=== PATIENT | female | born 1970 | race Caucasian/White ===

== ENCOUNTER 2020-05-27 11:13 | Emergency (ER) | payer BC, SELFPAY ==
[2020-05-27 11:30] VITALS: BP 177/81; PULSE 67; RESP 18; TEMP 36.7; O2SAT 100
--- NOTE | 2020-05-27 11:46 | ED.EAR ---
HPI - Ear Problem General Chief complaint: Ear Stated complaint: ear infection Time Seen by Provider: 05/27/20 11:47 Source: patient Mode of arrival: ambulatory Limitations: no limitations History of Present Illness HPI Narrative: Emy Chiang is a 49 yo female with PMH of psoriasis, PAD, Euybi-Jcujexquu-Umaid, who comes to [facility] with pain in her right ear x10 days. Her PCP called in ofloxacin eardrops but the pain has continued to get worse and now surrounds her other ear. She states currently her pain is 6 out of 10 even when she tries to use heat Related Data Home Medications Medication Instructions Recorded Confirmed metoprolol tartrate 50 mg PO BID 05/27/20 05/27/20 ofloxacin See Rx Instructions .ROUTE .COMPLEX 05/27/20 05/27/20 sertraline 100 mg PO DAILY 05/27/20 05/27/20 Allergies Allergy/AdvReac Type Severity Reaction Status Date / Time No Known Allergies Allergy Verified 05/27/20 11:40 Review of Systems Review of Systems: Narrative: CONSTITUTIONAL: Denies fever, chills, sweats. EYES: Denies visual changes, redness, discharge. ENT: Denies rhinorrhea, congestion, sore throat, has R otalgia. CARDIOVASCULAR: Denies chest pain, palpitations, edema. RESPIRATORY: Denies dyspnea, wheezing, cough GASTROINTESTINAL: Denies abdominal pain, nausea, vomiting, diarrhea. GENITOURINARY: Denies dysuria, hematuria, abnormal discharge SKIN: Denies rash or itching. NEUROLOGIC: Denies numbness, or focal weakness. PSYCHIATRIC: Denies anxiety or depression. PMFSH Past Medical History Medical History PAD (peripheral artery disease) Psoriasis Wtdlp-Xirftvvgj-Kblti (WPW) pattern Family History Family History Other PAD (peripheral artery disease) Social History Social History (Updated 05/27/20 @ 11:50 by Lorene Deras CNP) Smoking status: Never smoker Alcohol intake: current Comments At time of signature, I agree with nursing past medical, surgical, social and family history. There is no relevant family history pertinent to the presenting complaint. Exam Narrative: Exam Narrative: GENERAL: This is a well-nourished, well-developed patient, in mild distress. HEAD: normocephalic, atraumatic. EYES: PERRL. Sclera clear/white. Vision is grossly intact. EARS: External ears normal, auditory canals clear on L and right erythema and white discharge with fluid behind TM, TMs normal without perforation. Hearing grossly intact. NOSE: External nose normal without nasal discharge, nares without redness, no rhinorrhea. THROAT: Mucous membranes moist, NECK: Neck supple, non-tender CARDIOVASCULAR: Regular rate and rhythm without murmurs, gallops, or rubs. RESPIRATORY: Clear to auscultation. Breath sounds equal bilaterally. No wheezes, rales, or rhonchi. GASTROINTESTINAL: Abdomen soft, SKIN: warm, intact with no suspicious lesions or rash, good texture and turgor. NEURO: awake, alert, and oriented to person, place and time. There were no obvious focal neurologic abnormalities. Steady gait EXTREMITIES: Normal range of motion. BACK: Nontender without deformity Course Course Emergency Course: Patient came as a treatment failure for ear pain from primary care physician ear pain x10 days with worsening, currently 6 out of 10 Started on Cipro with dexamethasone eardrops Bactrim 800/160 type twice daily Use warm heat tear Follow-up with PCP Vital Signs Vital signs: Vital Signs Temperature 98.1 F 05/27/20 11:30 Pulse Rate 05/27/20 11:30 Respiratory Rate 18 05/27/20 11:30 Blood Pressure 177/81 H 05/27/20 11:30 Pulse Oximetry 100 05/27/20 11:30 Temperature 98.1 F 05/27/20 11:30 Pulse Rate 05/27/20 11:30 Respiratory Rate 18 05/27/20 11:30 Blood Pressure 177/81 H 05/27/20 11:30 Pulse Oximetry 100 05/27/20 11:30 Medical Decision Making Differential Diagnosis
== END 2020-05-27 12:00 | disposition home or self-care (01) ==
PROVIDERS: Emergency Provider Nurse Practitioner; PCP Internal Medicine
DX: H60.21 Malignant otitis externa, right ear (principal); I73.9 Peripheral vascular disease, unspecified; I45.6 Pre-excitation syndrome
CPT/HCPCS: 99213; G0463

== ENCOUNTER 2020-06-03 10:50 | Emergency (ER) | payer BC, SELFPAY ==
[2020-06-03 11:00] VITALS: BP 180/80; PULSE 68; RESP 20; TEMP 36.3; O2SAT 97
[2020-06-03 11:07] VITALS: BP 180/80; PULSE 68; RESP 20; TEMP 36.3; O2SAT 97
--- NOTE | 2020-06-03 11:29 | ED.EAR ---
HPI - Ear Problem General Chief complaint: Ear Stated complaint: rt ear pain Source: patient Mode of arrival: ambulatory Limitations: no limitations History of Present Illness HPI Narrative: Patient presents for evaluation of right-sided ear pain for the last few weeks. She was evaluated here on 05/27/2020 for similar symptoms. Prior to that time she had received a prescription for ofloxacin otic preparation from her primary care provider. She was given a prescription for cefdinir on 05/27/2020 which she took as directed. She reports improvement in the pain since that time. She does have some hearing loss in the right side. She has noted some thick purulent/sanguinous drainage noted from the right ear. She denies any fever, chills, nausea, vomiting, nasal congestion or respiratory symptoms. She does smoke marijuana but does not smoke ciagrettes. Related Data Home Medications Medication Instructions Recorded Confirmed metoprolol tartrate 50 mg PO BID 05/27/20 05/27/20 ofloxacin See Rx Instructions .ROUTE .COMPLEX 05/27/20 05/27/20 sertraline 100 mg PO DAILY 05/27/20 05/27/20 Allergies Allergy/AdvReac Type Severity Reaction Status Date / Time No Known Allergies Allergy Verified 06/03/20 11:02 Review of Systems Review of Systems: Narrative: CONSTITUTIONAL: Denies fever, chills, or sweats. EYES: Denies visual changes, redness, or discharge. ENT: Reports right-sided ear pain with associated drainage and hearing loss. Denies tinnitus and sore throat. CARDIOVASCULAR: Denies chest pain, palpitations, or edema. RESPIRATORY: Denies cough or dyspnea. GASTROINTESTINAL: Denies abdominal pain, nausea, vomiting, or diarrhea. GENITOURINARY: Denies dysuria or hematuria. SKIN: Denies rash or itching. MUSCULOSKELETAL: Denies back pain, joint pain, or myalgia. NEUROLOGIC: Denies headache, numbness, dizziness, or weakness. PSYCHIATRIC: Denies anxiety or depression. [facility] Past Medical History Medical History (Updated 06/03/20 @ 12:44 by Xavier Siddiqui, EMILE, ) PAD (peripheral artery disease) Psoriasis Vklbm-Ihhaftxzo-Eexlu (WPW) pattern Surgical History Surgical History Previous section Family History Family History Mother Diabetes mellitus Father Diabetes mellitus Other PAD (peripheral artery disease) Social History Social History Smoking status: Never smoker Alcohol intake: current Alcohol use details: Social Substance use: current Substance use type: marijuana Living arrangements: with family Gender identity (if verbalized by the patient): Female Sexual Orientation (if Verbalized by the Patient): Straight or Heterosexual Spiritual care concerns: No Exam Narrative: Exam Narrative: GENERAL: Well-appearing, well-nourished, and in no acute distress. HEAD: Normocephalic, atraumatic. EYES: PERRLA and EOMI. ENT: Nares clear, no rhinorrhea or epistaxis. Mucous membranes moist. Oropharynx without tonsillar hypertrophy exudate or other lesions. Left ear canal is ceruminous, obstructing visualization of the TM. There is white/yellow exudate noted in the right ear canal. Pt has pain with movement with movement of right pinna NECK: Supple. No adenopathy or masses. No carotid bruits or JVD CHEST: Clear to auscultation. No respiratory distress. No wheezes rales or rhonchi HEART: Regular rate and rhythm. No murmur heard. Normal peripheral pulses. ABDOMEN: Soft, nontender, nondistended, normal active bowel sounds. EXTREMITIES: Normal range of motion. No edema. SKIN: Warm, dry, no rash. NEURO: No focal deficits. Alert and oriented x3. PSYCH: Normal mood and affect. Course Course Emergency Course: This is a 49-year-old female who presented with complaints of right-sided ear pain and hearing loss. On exam sh
[2020-06-03] MEDS: ONDANSETRON HCL ODT 4 MG TABLET PO (11:31)
--- NOTE | 2020-06-03 11:43 | PC.NURSE ---
1133-Pt became nauseated during ear irrigation. Zofran ordered by provider. Pt resting comfortably on exam table.
== END 2020-06-03 12:52 | disposition home or self-care (01) ==
PROVIDERS: Emergency Provider Nurse Practitioner; PCP Internal Medicine
DX: H66.91 Otitis media, unspecified, right ear (principal); H60.91 Unspecified otitis externa, right ear; H61.21 Impacted cerumen, right ear; I73.9 Peripheral vascular disease, unspecified; I45.6 Pre-excitation syndrome
CPT/HCPCS: 69209; 99213; A9270; G0463

== ENCOUNTER 2020-08-18 13:08 | Emergency (ER) | payer BC, SELFPAY ==
[2020-08-18] VITALS (7 sets, daily range): BP systolic 127–207; BP diastolic 62–109; PULSE 64–85; RESP 12–18; TEMP 36.2; O2SAT 95–100
--- NOTE | ~2020-08-18 | XR_ITS ---
EXAMINATION: XR chest 2V DATE: 08/18/2020 14:30 INDICATION: Cough. TECHNIQUE: Frontal and lateral views of the chest were obtained. COMPARISON: None. FINDINGS: The chest demonstrates clear lungs without pneumonia, pleural effusion, or pneumothorax. Th e heart size is normal. IMPRESSION: 1. No acute cardiopulmonary disease. Reviewed, dictated and finalized at location A.
--- NOTE | ~2020-08-18 | CT_ITS ---
EXAMINATION: CT brain wo con DATE: 08/18/2020 14:18 INDICATION: Dizziness. TECHNIQUE: Computed tomography (CT) of the head was performed without intravenous contrast. The mA wa s adjusted according to patient size. Iterative reconstruction technique was employed. The dose-lengt h product was 605.33 mGy-cm. COMPARISON: None FINDINGS: There is no intracranial hemorrhage, acute infarction, or abnormal intracranial mass lesion . The ventricles are normal in size. The paranasal sinuses are clear. The mastoid air cells are donte l. IMPRESSION: 1. Normal brain. Reviewed, dictated and finalized at location A. IMPRESSION: 1. Normal brain.
--- NOTE | 2020-08-18 13:55 | ECG_ITS ---
Measurements Intervals [place] Rate: 69 P: 50 AR: 152 QRS: 55 QRSD: 88 T: 47 QT: 375 QTc: 403 Interpretive Statements SINUS RHYTHM BASELINE ARTIFACT- I, III, AVR, AVL, AVF, V4-V6 NORMAL ECG Electronically Signed On 08-18-2020 14:18:03 CDT by Kadeem Mednes D.O.
--- NOTE | 2020-08-18 14:06 | ED.GENADULT ---
HPI - General Adult General Chief complaint: Dizziness Stated complaint: dizziness Time Seen by Provider: 08/18/20 13:13 Source: patient Mode of arrival: ambulatory Limitations: no limitations History of Present Illness HPI narrative: Patient presents for evaluation of dizziness that started today while she was eating lunch. Started abruptly. She then developed nausea is experienced vomiting and diarrhea. She denies any abdominal pain, chest pain, shortness of breath, fever, chills, urinary symptoms. No history of similar symptoms in the past. She does consume ETOH about once per week, with last intake last night. She states she did feel intoxicated at that time. She also does smoke marijuana. She denies tobacco use. She has not experienced any difficulty speaking/swallowing. At the time of symptom onset, she had some heaviness in her legs but she denies any deficits in strength or range of motion. She states she feel particularly dizzy when she moves from sitting to standing position. 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 Related Data Home Medications Medication Instructions Recorded Confirmed metoprolol tartrate 50 mg PO BID 05/27/20 05/27/20 sertraline 100 mg PO DAILY 05/27/20 05/27/20 cholecalciferol (vitamin D3) 08/18/20 [Vitamin D3] rosuvastatin mg 08/18/20 Allergies Allergy/AdvReac Type Severity Reaction Status Date / Time No Known Allergies Allergy Verified 08/18/20 13:32 Review of Systems Review of Systems: Narrative: CONSTITUTIONAL: Denies fever, chills, or sweats. EYES: Denies visual changes, redness, or discharge. ENT: Denies rhinorrhea, congestion, sore throat, or otalgia. CARDIOVASCULAR: Denies chest pain, palpitations, or edema. RESPIRATORY: Denies cough or dyspnea. GASTROINTESTINAL: Reports nausea, vomiting, diarrhea. Denies abdominal pain. GENITOURINARY: Denies dysuria or hematuria. SKIN: Denies rash or itching. MUSCULOSKELETAL: Denies back pain, joint pain, or myalgia. NEUROLOGIC: Reports dizziness. Denies headache, numbness and tingling PSYCHIATRIC: Denies anxiety or depression. [facility] Past Medical History Medical History PAD (peripheral artery disease) Psoriasis Zewlg-Edhzjmwoz-Naxyv (WPW) pattern Surgical History Surgical History Previous section Family History Family History Mother Diabetes mellitus Father Diabetes mellitus Other PAD (peripheral artery disease) Social History Social History Smoking status: Never smoker Alcohol intake: current Substance use: current Substance use type: marijuana Gender identity (if verbalized by the patient): Female Spiritual care concerns: No Exam Narrative: Exam Narrative: GENERAL: Well-appearing, well-nourished, and in no acute distress. HEAD: Normocephalic, atraumatic. EYES: PERRLA and EOMI. ENT: Nares clear, no rhinorrhea or epistaxis. Mucous membranes moist. Oropharynx without tonsillar hypertrophy exudate or other lesions. Bilateral TMs pearly nino nonbulging NECK: Supple. No adenopathy or masses. No carotid bruits or JVD CHEST: Clear to auscultation. No respiratory distress. No wheezes rales or rhonchi HEART: Regular rate and rhythm. No murmur heard. Normal peripheral pulses. ABDOMEN: Soft, nontender, nondistended, normal active bowel sounds. EXTREMITIES: Normal range of motion. No edema. SKIN: Warm, dry, no rash. NEURO: No focal deficits. Alert and oriented x3. Normal ajynfj-bl-mpgj exam, able to perform rapid alternating movements without difficulty. Comprehensive neurological exam intact PSYCH: Normal mood and affect. NIH score is 0 Course Course Emergency Course: Patient is a 50-year-old fem
[2020-08-18 14:10] LABS: Basophils Absolute Auto 0.1 K/mm3 (0.0-0.1); Basophils Percent Auto 0.7 % (0.2-1.2); Eosinophils Absolute Auto 0.1 K/mm3 (0-0.3); Eosinophils Percent Auto 0.7 % (0-4.4); Hematocrit 42.9 % (37.0-47.0); Hemoglobin 14.7 g/dL (12.0-15.0); Immature Granulocyte Absolute 0.04 K/mm3 (0.00-0.031); Immature Granulocyte Percent A 0.4 % (0-0.5); Lymphocytes Absolute Auto 2.22 K/mm3 (0.9-3.2); Lymphocytes Percent Auto 21.7 % (18.3-44.2); Mean Corpuscular HGB Conc 34.3 g/dl (32-36); Mean Corpuscular Hemoglobin 31.2 pg (26-34); Mean Corpuscular Volume 91.1 fl (80-100); Mean Platelet Volume 8.6 fl (7.4-10.4); Monocytes Absolute Auto 0.5 K/mm3 (0.1-0.6); Monocytes Percent Auto 5.2 % (2.6-8.5); Neutrophils Absolute Auto 7.3 K/mm3 (1.3-6.7); Neutrophils Percent Auto 71.3 % (45.5-73.1); Platelet Count Result 382 k/mm3 (150-375); Red Blood Count 4.71 M/mm3 (4.2-5.4); Red Cell Distribution Width 12.9 % (11.5-14.5); White Blood Count 10.2 K/mm3 (4.5-10.0)
[2020-08-18 14:17] LABS: Add Urine Microscopic? YES; Appearance Urine Clear (Clear); Bacteria Urine Trace /hpf; Bilirubin Urine Negative (Negative); Blood Urine 1+ (Negative); Color Urine Yellow (Yellow); Glucose Urine UA Negative (Negative); Ketones Urine Negative (Negative); Leukocyte Esterase Ur Negative LEU/UL (Negative); Mucus Urine Rare /lpf; Nitrate Urine Negative (Negative); Protein Urine 1+ mg/dL (Negative); RBC Urine 0-2 /hpf (0-2); Squamous Epithelial Cell Urine Occasional /hpf (Few); WBC Urine 0-3 /hpf
[2020-08-18 14:20] LABS: Anion Gap 8 mmol/L (8-16); Blood Urea Nitrogen 16 mg/dL (7-17); Calcium 9.3 mg/dL (8.4-10.2); Carbon Dioxide 32 mmol/L (22-30); Chloride 103 mmol/L (98-107); Estimated CRCL calculation 70 ml/min; Estimated Glomerular Filt Rate > 60; Glucose 102 mg/dL (65-105); Lipase 322 U/L (23-300); Potassium 4.1 mmol/L (3.4-5.0); Sodium 143 mmol/L (137-145)
[2020-08-18] MEDS: SODIUM CHLORIDE 0.9% IV 1,000 ML 999 ML IV CONT (14:30)
[2020-08-18 14:32] LABS: Troponin I < 0.012 ng/mL (0.000-0.034)
[2020-08-18] MEDS: ONDANSETRON INJ 4 MG/2 ML VIAL IV PUSH (14:33)
[2020-08-18 14:48] LABS: Alanine Aminotransferase 19 U/L (4-35); Albumin Level 4.9 g/dL (3.5-5.1); Alkaline Phosphatase 93 U/L (38-126); Aspartate Amino Transferase 33 U/L (14-36); Bilirubin,Total 0.5 mg/dL (0.2-1.3); Prothrombin Time 13.6 Seconds (11.1-14.7)
[2020-08-18 14:49] LABS: Partial Thromboplastin Time 27.2 SECONDS (22.3-36.8)
[2020-08-18] MEDS: MECLIZINE HCL 25 MG TABLET PO (15:05)
[2020-08-18] MEDS: diazePAM (*CRX) 5 MG TABLET PO (15:20)
== END 2020-08-18 16:37 | disposition home or self-care (01) ==
PROVIDERS: Emergency Provider Nurse Practitioner; PCP Internal Medicine
DX: R42 Dizziness and giddiness (principal); I10 Essential (primary) hypertension; I73.9 Peripheral vascular disease, unspecified; I45.6 Pre-excitation syndrome
CPT/HCPCS: 36415; 70450; 71046; 80048; 80076; 81001; 83690; 84443; 84484; 85025; 85610; 85730; 93005; 96361; 96374; 99284; A9270; J2405; J7030

== ENCOUNTER 2021-07-01 12:08 | Outpatient (CLI) | payer BC, SELFPAY ==
[2021-07-01 19:38] LABS: Hemoglobin 13.1 g/dL (12.0-15.0); Mean Corpuscular HGB Conc 33.6 g/dl (32-36); Mean Corpuscular Volume 92.2 fl (80-100); Mean Platelet Volume 10.8 fl (7.4-10.4); Platelet Count Result 230 k/mm3 (150-375); Red Blood Count 4.23 M/mm3 (4.2-5.4); Red Cell Distribution Width 13.9 % (11.5-14.5); White Blood Count 8.8 K/mm3 (4.5-10.0)
[2021-07-01 19:47] LABS: Alanine Aminotransferase 15 U/L (4-35); Albumin Level 4.2 g/dL (3.5-5.1); Alkaline Phosphatase 86 U/L (38-126); Anion Gap 9 mmol/L (8-16); Aspartate Amino Transferase 26 U/L (14-36); Bilirubin,Total 0.6 mg/dL (0.2-1.3); Blood Urea Nitrogen 16 mg/dL (7-17); Carbon Dioxide 27 mmol/L (22-30); Chloride 107 mmol/L (98-107); Cholesterol 177 mg/dL (0-200); Estimated Glomerular Filt Rate > 60; Glucose 92 mg/dL (65-110); HDL Direct 64 mg/dL; Potassium 4.2 mmol/L (3.4-5.0); Sodium 143 mmol/L (137-145); Triglycerides 80 mg/dL (<150)
[2021-07-01 19:58] LABS: LDL Cholesterol Direct 90 mg/dL
[2021-07-01 20:00] LABS: Vitamin D 25 Hydroxy 56.1 ng/mL
== END 2021-07-01 12:09 | disposition home or self-care (01) ==
LOC: ANHBWCLAB 12:10
PROVIDERS: PCP Family Medicine; Visit Provider Family Medicine
DX: E55.9 Vitamin D deficiency, unspecified (principal); I73.9 Peripheral vascular disease, unspecified; Z00.00 Encounter for general adult medical examination without abnormal findings
CPT/HCPCS: 36415; 80053; 80061; 82306; 85027

== ENCOUNTER 2022-07-02 14:08 | Outpatient (CLI) | payer OTHER, SELFPAY ==
--- NOTE | ~2022-07-02 | XR_ITS ---
XR sinus min 3V DATE: 07/02/2022 14:23 INDICATION: Left sided sinus pressure. Nasal congestion. TECHNIQUE: Warren Demarco, lateral and submental vertical views COMPARISON: None FINDINGS: There is asymmetric increased density of the left frontal and maxillary sinuses. The parana adrián sinuses and mastoid air cells otherwise appear unremarkable. Normal sella turcica. IMPRESSION: Cloudiness of left frontal and maxillary sinuses suggesting sinusitis of the structures Reviewed, dictated and finalized at location B. [employer] IMPRESSION: Cloudiness of left frontal and maxillary sinuses suggesting sinusit is of the structures
[2022-07-02 17:27] LABS: Alanine Aminotransferase 20 U/L (6-35); Albumin Level 4.7 g/dL (3.5-5.1); Alkaline Phosphatase 115 U/L (38-126); Anion Gap 7 mmol/L (8-16); Aspartate Amino Transferase 48 U/L (14-36); Bilirubin,Total 0.7 mg/dL (0.2-1.3); Blood Urea Nitrogen 10 mg/dL (7-17); Calcium 9.6 mg/dL (8.4-10.2); Carbon Dioxide 32 mmol/L (22-30); Chloride 101 mmol/L (98-107); Cholesterol 252 mg/dL (0-200); Estimated Glomerular Filt Rate > 60; Glucose 88 mg/dL (65-110); HDL Direct 80 mg/dL; Potassium 3.4 mmol/L (3.4-5.0); Sodium 140 mmol/L (137-145); Triglycerides 153 mg/dL (<150)
[2022-07-02 17:40] LABS: Basophils Absolute Auto 0.1 K/mm3 (0.0-0.1); Basophils Percent Auto 0.7 % (0.2-1.2); Eosinophils Absolute Auto 0.1 K/mm3 (0-0.3); Hematocrit 43.9 % (37.0-47.0); Hemoglobin 14.4 g/dL (12.0-15.0); Immature Granulocyte Absolute 0.06 K/mm3 (0.00-0.031); Immature Granulocyte Percent A 0.7 % (0-0.5); Mean Corpuscular HGB Conc 32.8 g/dl (32-36); Mean Corpuscular Volume 94.6 fl (80-100); Monocytes Absolute Auto 0.5 K/mm3 (0.1-0.6); Monocytes Percent Auto 5.4 % (2.6-8.5); Neutrophils Absolute Auto 6.4 K/mm3 (1.3-6.7); Neutrophils Percent Auto 70.2 % (45.5-73.1); Platelet Count Result 294 k/mm3 (150-375); Red Blood Count 4.64 M/mm3 (4.2-5.4); Red Cell Distribution Width 13.2 % (11.5-14.5); White Blood Count 9.1 K/mm3 (4.5-10.0)
[2022-07-02 17:41] LABS: LDL Cholesterol Direct 116 mg/dL
[2022-07-02 18:55] LABS: Vitamin D 25 Hydroxy 56.1 ng/mL
== END 2022-07-02 14:09 | disposition home or self-care (01) ==
LOC: ANHBWCLAB 14:09
PROVIDERS: PCP Family Medicine; Visit Provider Family Medicine
DX: Z00.00 Encounter for general adult medical examination without abnormal findings (principal); L40.9 Psoriasis, unspecified; I73.9 Peripheral vascular disease, unspecified; I45.6 Pre-excitation syndrome; Z12.39 Encounter for other screening for malignant neoplasm of breast; Z12.11 Encounter for screening for malignant neoplasm of colon; E55.9 Vitamin D deficiency, unspecified; R42 Dizziness and giddiness; R09.81 Nasal congestion
CPT/HCPCS: 36415; 70220; 80053; 80061; 82306; 85025

== ENCOUNTER 2022-10-15 10:53 | Outpatient (CLI) | payer OTHER, SELFPAY ==
[2022-10-15 19:50] LABS: Basophils Percent Auto 0.6 % (0.2-1.2); Eosinophils Absolute Auto 0.1 K/mm3 (0-0.3); Eosinophils Percent Auto 1.5 % (0-4.4); Hematocrit 43.2 % (37.0-47.0); Hemoglobin 14.4 g/dL (12.0-15.0); Immature Granulocyte Absolute 0.03 K/mm3 (0.00-0.031); Immature Granulocyte Percent A 0.4 % (0-0.5); Lymphocytes Absolute Auto 1.54 K/mm3 (0.9-3.2); Lymphocytes Percent Auto 21.6 % (18.3-44.2); Mean Corpuscular HGB Conc 33.3 g/dl (32-36); Mean Corpuscular Hemoglobin 32.3 pg (26-34); Mean Corpuscular Volume 96.9 fl (80-100); Mean Platelet Volume 9.3 fl (7.4-10.4); Monocytes Absolute Auto 0.4 K/mm3 (0.1-0.6); Monocytes Percent Auto 5.5 % (2.6-8.5); Neutrophils Percent Auto 70.4 % (45.5-73.1); Platelet Count Result 247 k/mm3 (150-375); Red Blood Count 4.46 M/mm3 (4.2-5.4); Red Cell Distribution Width 13.6 % (11.5-14.5); White Blood Count 7.1 K/mm3 (4.5-10.0)
[2022-10-15 20:23] LABS: Alanine Aminotransferase 39 U/L (6-35); Albumin Level 4.7 g/dL (3.5-5.1); Alkaline Phosphatase 93 U/L (38-126); Anion Gap 10 mmol/L (8-16); Aspartate Amino Transferase 67 U/L (14-36); Bilirubin,Total 0.8 mg/dL (0.2-1.3); Blood Urea Nitrogen 11 mg/dL (7-17); Calcium 9.6 mg/dL (8.4-10.2); Carbon Dioxide 31 mmol/L (22-30); Chloride 99 mmol/L (98-107); Cholesterol 234 mg/dL (0-200); Estimated Glomerular Filt Rate > 60; Glucose 78 mg/dL (65-110); HDL Direct 107 mg/dL; Potassium 3.4 mmol/L (3.4-5.0); Sodium 140 mmol/L (137-145); Triglycerides 154 mg/dL (<150)
[2022-10-15 20:33] LABS: LDL Cholesterol Direct 99 mg/dL
== END 2022-10-15 10:54 | disposition home or self-care (01) ==
LOC: ANHBWCLAB 10:54
PROVIDERS: PCP Family Medicine; Visit Provider Nurse Practitioner Adult Health
DX: I10 Essential (primary) hypertension (principal); E55.9 Vitamin D deficiency, unspecified
CPT/HCPCS: 36415; 80053; 80061; 82306; 85025

== ENCOUNTER 2022-10-21 10:13 | Outpatient (CLI) | payer OTHER, SELFPAY ==
--- NOTE | ~2022-10-21 | XR_ITS ---
EXAMINATION: XR ribs BI 3V w CXR 2V INDICATION: Chest pain after fall TECHNIQUE: Frontal and lateral views of the chest and 3 views of the bilateral ribs were obtained. COMPARISON: 08/18/2010 FINDINGS: The lungs are free of acute opacities. No pleural effusion or pneumothorax. The cardiomedia stinal silhouette is normal. There is mild thoracic spondylosis. No displaced rib fracture is identif ied. IMPRESSION: 1. No acute cardiopulmonary abnormality or evidence of displaced rib fracture. Reviewed, dictated and finalized at location L.
== END 2022-10-21 10:14 | disposition home or self-care (01) ==
LOC: ANHBWCIMG 10:15
PROVIDERS: PCP Family Medicine; Visit Provider Nurse Practitioner Adult Health
DX: R07.89 Other chest pain (principal)
CPT/HCPCS: 71046; 71110

== ENCOUNTER 2023-04-16 09:41 | Outpatient (CLI) | payer OTHER, SELFPAY ==
[2023-04-16 19:43] LABS: Hematocrit 43.2 % (37.0-47.0); Mean Corpuscular HGB Conc 32.4 g/dl (32-36); Mean Corpuscular Hemoglobin 32.6 pg (26-34); Mean Corpuscular Volume 100.5 fl (80-100); Mean Platelet Volume 9.4 fl (7.4-10.4); Platelet Count Result 355 k/mm3 (150-375); Red Cell Distribution Width 14.3 % (11.5-14.5); White Blood Count 9.8 K/mm3 (4.5-10.0)
[2023-04-16 19:57] LABS: Alanine Aminotransferase 21 U/L (6-35); Albumin Level 4.7 g/dL (3.5-5.1); Alkaline Phosphatase 92 U/L (38-126); Anion Gap 10 mmol/L (8-16); Aspartate Amino Transferase 48 U/L (14-36); Bilirubin,Total 0.8 mg/dL (0.2-1.3); Blood Urea Nitrogen 22 mg/dL (7-17); Calcium 10.1 mg/dL (8.4-10.2); Carbon Dioxide 23 mmol/L (22-30); Chloride 106 mmol/L (98-107); Cholesterol 213 mg/dL (0-200); Estimated Glomerular Filt Rate 58; Glucose 92 mg/dL (65-110); HDL Direct 55 mg/dL; Potassium 4.4 mmol/L (3.4-5.0); Sodium 139 mmol/L (137-145); Triglycerides 142 mg/dL (<150)
[2023-04-16 19:58] LABS: Vitamin D 25 Hydroxy 87.5 ng/mL
[2023-04-16 20:08] LABS: LDL Cholesterol Direct 108 mg/dL
[2023-04-16 20:20] LABS: Erythrocyte Sedimentation Rate 16 mm/hr (0-20)
[2023-04-21 11:48] LABS: ANA Cascade Screen Negative (Negative)
== END 2023-04-16 09:42 | disposition home or self-care (01) ==
LOC: ANHBWCLAB 09:43
PROVIDERS: PCP Nurse Practitioner Adult Health; Visit Provider Nurse Practitioner Adult Health
DX: E55.9 Vitamin D deficiency, unspecified (principal); L40.9 Psoriasis, unspecified; Z13.9 Encounter for screening, unspecified
CPT/HCPCS: 36415; 80053; 80061; 82306; 84443; 85027; 85652; 86038; 86225; 86235; 86364

== ENCOUNTER 2023-10-22 11:40 | Outpatient (CLI) | payer OTHER, SELFPAY ==
--- NOTE | ~2023-10-22 | XR_ITS ---
XR shoulder RT min 2V Ordering provider: Viviane Akhtar APRN History: . Pain in right shoulder after lifting . Comparison: None. FINDINGS: BONES: No acute fracture or dislocation. JOINT SPACES: The acromioclavicular joint is normal. The glenohumeral joint is normal. SOFT TISSUES: Normal. IMPRESSION: No acute osseous abnormality right shoulder. Reviewed, dictated and finalized at location A.
[2023-10-22 18:50] LABS: Basophils Absolute Auto 0.1 K/mm3 (0.0-0.1); Basophils Percent Auto 0.9 % (0.2-1.2); Eosinophils Absolute Auto 0.1 K/mm3 (0-0.3); Eosinophils Percent Auto 1.2 % (0-4.4); Hematocrit 46.4 % (37.0-47.0); Hemoglobin 15.2 g/dL (12.0-15.0); Immature Granulocyte Absolute 0.05 K/mm3 (0.00-0.031); Immature Granulocyte Percent A 0.6 % (0-0.5); Lymphocytes Absolute Auto 1.67 K/mm3 (0.9-3.2); Lymphocytes Percent Auto 20.3 % (18.3-44.2); Mean Corpuscular HGB Conc 32.8 g/dl (32-36); Mean Corpuscular Hemoglobin 31.1 pg (26-34); Mean Corpuscular Volume 94.9 fl (80-100); Mean Platelet Volume 9.8 fl (7.4-10.4); Monocytes Absolute Auto 0.4 K/mm3 (0.1-0.6); Monocytes Percent Auto 5.1 % (2.6-8.5); Neutrophils Absolute Auto 5.9 K/mm3 (1.3-6.7); Neutrophils Percent Auto 71.9 % (45.5-73.1); Platelet Count Result 352 k/mm3 (150-375); Red Blood Count 4.89 M/mm3 (4.2-5.4); Red Cell Distribution Width 14.1 % (11.5-14.5); White Blood Count 8.2 K/mm3 (4.5-10.0)
[2023-10-22 19:16] LABS: Alanine Aminotransferase 291 U/L (6-35); Albumin Level 5.4 g/dL (3.5-5.1); Alkaline Phosphatase 95 U/L (38-126); Anion Gap 12 mmol/L (4-12); Aspartate Amino Transferase 128 U/L (14-36); Bilirubin,Total 0.9 mg/dL (0.2-1.3); Blood Urea Nitrogen 15 mg/dL (7-17); Calcium 10.1 mg/dL (8.4-10.2); Carbon Dioxide 26 mmol/L (22-30); Chloride 103 mmol/L (98-107); Cholesterol 239 mg/dL (0-200); Estimated Glomerular Filt Rate > 60; Glucose 90 mg/dL (65-110); HDL Direct 73 mg/dL; Potassium 3.7 mmol/L (3.4-5.0); Sodium 141 mmol/L (137-145); Triglycerides 125 mg/dL (<150)
[2023-10-22 19:30] LABS: LDL Cholesterol Direct 127 mg/dL
[2023-10-22 19:49] LABS: Vitamin D 25 Hydroxy 84.4 ng/mL
[2023-10-22 21:51] LABS: Free T4 Free Thyroxine Reflex 1.49 ng/dL (0.78-2.19)
[2023-10-22 23:17] LABS: Total Triiodothyronine (T3) 1.34 NG/ML (0.97-1.69)
== END 2023-10-22 11:41 | disposition home or self-care (01) ==
LOC: ANHBWCLAB 11:42
PROVIDERS: PCP Nurse Practitioner Adult Health; Visit Provider Nurse Practitioner Adult Health
DX: M25.511 Pain in right shoulder (principal); E55.9 Vitamin D deficiency, unspecified; I10 Essential (primary) hypertension
CPT/HCPCS: 36415; 73030; 80053; 80061; 82306; 83735; 84439; 84443; 84480; 85025

== ENCOUNTER 2023-10-27 15:23 | Outpatient (CLI) | payer OTHER, SELFPAY ==
[2023-10-27 21:44] LABS: HAV RESULT Negative (Negative); Hepatitis B Surface Antigen Negative (Negative)
[2023-10-27 21:45] LABS: Hepatitis C Virus Antibody Negative (Negative)
[2023-10-28 03:09] LABS: Hepatitis B Core IgM Result Negative (Negative)
== END 2023-10-27 15:24 | disposition home or self-care (01) ==
LOC: ANHBWCLAB 15:25
PROVIDERS: PCP Nurse Practitioner Adult Health; Visit Provider Nurse Practitioner Adult Health
DX: R74.8 Abnormal levels of other serum enzymes (principal)
CPT/HCPCS: 36415; 80074

== ENCOUNTER 2023-11-14 09:15 | Outpatient (CLI) | payer OTHER, SELFPAY ==
--- NOTE | ~2023-11-14 | US_ITS ---
US abdomen limited INDICATION: Elevated liver function tests. PROCEDURE: Realtime right upper abdominal ultrasound. COMPARISON: No prior studies for comparison. FINDINGS: The pancreas is normal without focal mass or pancreatic ductal dilation. Liver echotexture is increased, consistent with fatty infiltration. There is normal directional flow in the portal ve in. The gallbladder is normal without stones, gallbladder wall thickening or pericholecystic fluid. Comm on bile duct measures 2.2 mm. No sonographic Rhodes's sign. IMPRESSION: 1: Fatty infiltration of the liver. Reviewed, dictated and finalized at location B.
== END 2023-11-14 09:16 | disposition home or self-care (01) ==
PROVIDERS: PCP Nurse Practitioner Adult Health; Visit Provider Nurse Practitioner Adult Health
DX: R74.8 Abnormal levels of other serum enzymes (principal); K76.0 Fatty (change of) liver, not elsewhere classified
CPT/HCPCS: 76705

== ENCOUNTER 2023-12-15 12:55 | Outpatient (CLI) | payer OTHER, SELFPAY | END 2023-12-15 12:56 | disposition home or self-care (01) | LOC: ANHBWCAUD 12:55 | PROVIDERS: PCP Nurse Practitioner Adult Health; Visit Provider Otolaryngology | DX: H81.02 Meniere's disease, left ear (principal); H90.42 Sensorineural hearing loss, unilateral, left ear, with unrestricted hearing on the contralateral side; H81.4 Vertigo of central origin | CPT/HCPCS: 92557; 92567 ==

== ENCOUNTER 2024-01-29 13:45 | Outpatient (CLI) | payer OTHER, SELFPAY ==
--- NOTE | ~2024-01-29 | CT_ITS ---
EXAMINATION: CTA brain DATE: 01/29/2024 14:30 INDICATION: Vertigo of central origin. TECHNIQUE: Computed tomographic angiography (CTA) of the head was performed without and with 100 mL O mnipaque-350 intravenous contrast. Automated exposure control and iterative reconstruction technique were employed. The dose-length product was 1002.47 mGy-cm. Maximum intensity projection 3D reconstru ctions were created. Volume-rendered 3D reconstructions of the intracranial arteries were created by the technologist on a separate workstation. COMPARISON: Head CT 08/18/2020 FINDINGS: There is no intracranial hemorrhage, acute infarction, or abnormal intracranial mass lesion . There are scattered areas of low attenuation in the cerebral white matter, which is within normal l imits for the patient's age. The ventricles are normal in size. There is mucosal thickening in the le ft frontal, ethmoid, and maxillary sinuses including complete opacification of left maxillary sinus w ith thickening and sclerosis of the sinus [place], consistent with chronic sinusitis. The mastoid air c ells are normal. The orbits are normal. Right vertebral artery is dominant. There is no significant s tenosis of basilar artery or the posterior cerebral arteries. There is no significant stenosis of the intracranial internal carotid arteries or anterior or middle cerebral arteries. Anterior communicati ng artery is normal. The posterior communicating arteries are normal. There is no aneurysm. IMPRESSION: 1. Normal aging brain. 2. No aneurysm or significant intracranial arterial stenosis. 3. Chronic sinusitis. Reviewed, dictated and finalized at location A.
[2024-01-29 14:29] LABS: Estimated Glomerular Filt Rate 58
== END 2024-01-29 13:46 | disposition home or self-care (01) ==
PROVIDERS: PCP Nurse Practitioner Adult Health; Visit Provider Otolaryngology
DX: H81.4 Vertigo of central origin (principal); H90.42 Sensorineural hearing loss, unilateral, left ear, with unrestricted hearing on the contralateral side; H81.02 Meniere's disease, left ear; H93.A2 Pulsatile tinnitus, left ear; J32.9 Chronic sinusitis, unspecified
CPT/HCPCS: 70496; Q9967

== ENCOUNTER 2024-03-04 10:13 | Outpatient (RCR) | payer OTHER, SELFPAY ==
--- NOTE | 2024-03-04 12:31 | OPREHPOC ---
Outpatient Therapy Plan of Care This is a Multidisciplinary Plan of Care that may contain components documented by all disciplines (PT, OT, and ST.) PT Problem 1 PT Problem #1 Knowledge Deficit PT Goal 1 Goal / Goal Update Patient will report symptoms 0% of the time with head movement Target Visit 2 PT Goal 2 Goal / Goal Update Patient will demonstrate independence with performance of home French maneuver Target Visit 4
--- NOTE | 2024-03-04 12:31 | PTOPEVAL1 ---
Assessment and note entered by Jamil Cole, PT Evaluation Information Assessment Status Evaluation ICD-10 Condition Codes (PT) BPPV H81.12 Onset 5 years ago Subjective Information Patient reports that she first had issues approximately 5 years ago. Denies any mechanism of injury or known cause. She has had a lot of issues with her sinuses and feel that those may be contributing. She is scheduled for possible balloon rhinoplasty to address this. Feels that she has been on medication for this condition and nothing has given her emt intermediate relief. She reports that over time her symptom intensity and frequency has improved but is still present. Reported Pain Level Pain Score 0: Self Report Assessment PT Clinical Summary Patient was negative for BPPV this date. Symptoms were negative for both canals tested and is not having dizziness at her baseline this date. No superficial vestibular deficits noted this date with gait or balance. Patient was thoroughly educated in findings and symptoms to note and I will keep her chart open in case she has an active episode that can be assessed. Plan of Care Interventions Neuro Re-education PT Services Indicated Yes Treatment Frequency and 1x/week for 4 visits as needed. Duration These treatments will address the objective and functional deficits as defined above. The patient will be advanced safely and appropriately in order for the patient to progress towards his/her prior level of function. Additional exercises will be introduced and as well as a comprehensive home exercise program upon discharge, if needed, ?to ensure carryover of functional gains achieved in the clinic. This treatment plan has been reviewed and agreement upon by the patient.
--- NOTE | 2024-03-23 15:21 | PTOPDC ---
Assessment and note entered by Jamil Cole, PT Evaluation Information Assessment Status Discharge - Pt Not Presen ICD-10 Condition Codes (PT) BPPV H81.12 Onset 5 years ago Subjective Information Patient reports that she first had issues approximately 5 years ago. Denies any mechanism of injury or known cause. She has had a lot of issues with her sinuses and feel that those may be contributing. She is scheduled for possible balloon rhinoplasty to address this. Feels that she has been on medication for this condition and nothing has given her group home relief. She reports that over time her symptom intensity and frequency has improved but is still present. Assessment PT Clinical Summary Patient chart was held for 2 weeks with no contact from patient assuming that services are no longer needed per conversation at evaluation. Patient will be discharged at this time per POC. Plan of Care PT Services Indicated D/C to [facility]
== END 2024-03-23 15:35 | disposition home or self-care (01) ==
LOC: ANHGOSHPT 10:13
PROVIDERS: PCP Nurse Practitioner Adult Health; Visit Provider Otolaryngology
DX: H81.10 Benign paroxysmal vertigo, unspecified ear (principal)
CPT/HCPCS: 97112; 97161

== ENCOUNTER 2024-05-18 14:52 | Outpatient (CLI) | payer OTHER, SELFPAY ==
[2024-05-18 19:31] LABS: Basophils Absolute Auto 0.1 K/mm3 (0.0-0.1); Basophils Percent Auto 0.8 % (0.2-1.2); Eosinophils Absolute Auto 0.1 K/mm3 (0-0.3); Eosinophils Percent Auto 1.2 % (0-4.4); Hematocrit 45.3 % (37.0-47.0); Hemoglobin 14.9 g/dL (12.0-15.0); Immature Granulocyte Absolute 0.03 K/mm3 (0.00-0.031); Immature Granulocyte Percent A 0.3 % (0-0.5); Lymphocytes Absolute Auto 3.52 K/mm3 (0.9-3.2); Lymphocytes Percent Auto 32.5 % (18.3-44.2); Mean Corpuscular HGB Conc 32.9 g/dl (32-36); Mean Corpuscular Hemoglobin 28.9 pg (26-34); Monocytes Absolute Auto 0.6 K/mm3 (0.1-0.6); Monocytes Percent Auto 5.4 % (2.6-8.5); Neutrophils Absolute Auto 6.5 K/mm3 (1.3-6.7); Neutrophils Percent Auto 59.8 % (45.5-73.1); Platelet Count Result 341 k/mm3 (150-375); Red Blood Count 5.15 M/mm3 (4.2-5.4); Red Cell Distribution Width 13.8 % (11.5-14.5); White Blood Count 10.8 K/mm3 (4.5-10.0)
[2024-05-18 20:27] LABS: Alanine Aminotransferase 12 U/L (6-35); Albumin Level 4.6 g/dL (3.5-5.1); Alkaline Phosphatase 114 U/L (38-126); Aspartate Amino Transferase 29 U/L (14-36); Blood Urea Nitrogen 12 mg/dL (7-17); Calcium 9.7 mg/dL (8.4-10.2)
[2024-05-18 20:28] LABS: Anion Gap 12 mmol/L (4-12); Bilirubin,Total 0.7 mg/dL (0.2-1.3); Carbon Dioxide 25 mmol/L (22-30); Chloride 103 mmol/L (98-107); Estimated Glomerular Filt Rate > 60; Glucose 92 mg/dL (65-110); HDL Direct 59 mg/dL; Potassium 3.9 mmol/L (3.4-5.0); Sodium 140 mmol/L (137-145); Triglycerides 173 mg/dL (<150)
[2024-05-18 20:34] LABS: LDL Cholesterol Direct 189 mg/dL
[2024-05-18 20:54] LABS: Cholesterol 303 mg/dL (0-200)
[2024-05-18 20:57] LABS: Vitamin D 25 Hydroxy 64.4 ng/mL
--- OUTSIDE RECORDS SUMMARY | 2024-05-20 02:34 | XMS_ITS | Clinical Summary ---
Author Organization [facility] Address [address], [address] [address] Phone Care Team Providers Care Casino Investigator Name Role Phone Provider, None Primary Care Provider Unavailabl e Allergies No known active allergies Medications METOPROLOL TARTRATE PO Take by mouth. Active SERTRALINE HCL PO Take by mouth. Active HYDROcodone-pepito taminophen (NORCO) 5-325 MG Tablet Take 1 Tab by mouth every 6 hours as needed for Moderate or more severe pain. 20 Tab 04/08/2020 Active Social History Tobacco Use Types Packs/Day Years Used Date Smoking Tobacco: Never Cigarettes Alcohol Use Standard Drinks/Week Comments Never 0 (1 standard drink = 0.6 oz pur e alcohol) AUDIT-C Answer Date Recorded Q1: How often do you have a drink containing alc ohol? Never 04/08/2020 Average Number of Drinks Not on file 020 Frequency of Binge Drinking Not on file 03/27 Comments No Sex and Gender Information Value Date Recorded Sex Assigned at Not on file Legal Sex Female 9:10 PM CDT Gender Identity Not on file Sexual Orientation Not on file Last Filed Vital Signs Vital Sign Reading Time Taken Comments Blood Pressure 162/92 04/08/2020 3:20 PM HEEL SEAM RUBBER Pulse 65 04/08/2020 1:42 PM HEEL SEAM RUBBER Temperature 37.1 ??C (98.7 ??F) 04/08/2020 1:42 PM CS T Respiratory Rate 18 04/08/2020 1:42 PM HEEL SEAM RUBBER Oxygen Saturation 99% 04/08/2020 1:42 PM HEEL SEAM RUBBER Inhaled Oxygen Concentration - - Weight 68 kg (150 lb) 04/08/2020 1:42 PM HEEL SEAM RUBBER Height 167.6 cm (5' 6 ) 04/08/2020 1:42 PM HEEL SEAM RUBBER Body Mass Index 24.21 04/08/2020 1:42 PM HEEL SEAM RUBBER Plan of Treatment Health Maintenance Due Date Last Done Comments Hepatitis C Virus (HCV) Screening 1969 TdaP Immunization 1969 Hepatitis B Immunization (1 of 3 - 19+ 3-dose series) 1988 Pap Smear 1990 Cervical Cancer Screening (CCS) 06/26/1999 HPV/Cotest 06/26/1999 Colonoscopy 2014 Colorectal Cancer Screening 2014 Cologuard 06/26/2019 Immunochemical Fecal Occult Blood 06/26/2019 Mammogram 06/26/2019 Pneumococcal Immunization (5 0+ years) (1 of 1 - PCV) 06/26/2019 Zoster Immunization (1 of 2) 06/26/2019 Influenza Immunization (#1) 2023 SARS-COV-2 Immunization ( - 2023- season) 2023 Respiratory Syncytial Virus (RSV) Immunization (Adult) (1 - 1-dose 75+ series) 2044 Meningococcal Immunization (ACWY) Aged Out No longer eligible based on patient's age to complete this topic Pneumococcal Immunization Combined Aged Out No longer eligible based on patient's age to complete this topic Rotavirus Immunization Aged Out No lo nger eligible based on patient's age to complete this topic Insurance [place] [id number] Care Teams Casino Investigator Relationship Specialty Start Date End Date Provider, None [place] PCP - General 04/08/20
== END 2024-05-18 14:53 | disposition home or self-care (01) ==
LOC: ANHBWCLAB 14:53
PROVIDERS: PCP Nurse Practitioner Adult Health; Visit Provider Nurse Practitioner Adult Health
DX: E55.9 Vitamin D deficiency, unspecified (principal); I10 Essential (primary) hypertension
CPT/HCPCS: 36415; 80053; 80061; 82306; 84443; 85025

== ENCOUNTER 2024-09-28 08:30 | Outpatient (CLI) | payer OTHER, SELFPAY ==
--- NOTE | ~2024-09-28 | NM_ITS ---
EXAMINATION: NM arabella stress w perfusion DATE: 09/28/2024 11:59 INDICATION: Ventricular tachycardia TECHNIQUE: Rest images were obtained following intravenous administration of 10.2 mCi Tc99m tetrofosm in (Myoview). The patient was infused intravenously with Lexiscan (Regadenoson). Then, 31.8 mCi Tc99m tetrofosmin (Myoview) was administered intravenously, and stress images were obtained. Data was jen nstructed into short axis and horizontal and vertical long axis SPECT images. Gated SPECT images were also obtained. COMPARISON: None. FINDINGS: There is no definite reversible or fixed perfusion abnormality to suggest ischemia or infar ction. There is normal left ventricular chamber size, wall motion and ejection fraction. Left ventr icular ejection fraction measures 57%. IMPRESSION: 1. Normal myocardial perfusion at rest and during stress. 2. Left ventricular ejection fraction measuring 57%. Reviewed, dictated and finalized at location A.
--- OUTSIDE RECORDS SUMMARY | 2024-09-28 08:33 | XMS_ITS | Clinical Summary ---
Author Organization [facility] Address [address], [address] [address] Phone Care Team Providers Care Radio Division Officer Name Role Phone Provider, None Primary Care [...] Comments Blood Pressure 162/92 04/08/2020 3:20 PM DUST OPERATOR Pulse 65 04/08/2020 1:42 PM DUST OPERATOR Temperature 37.1 C (98.7 F) 04/08/2020 1:42 PM DUST OPERATOR Respiratory Rate 18 04/08/2020 1:42 PM DUST OPERATOR Oxygen Saturation 99% 04/08/2020 1:42 PM DUST OPERATOR Inhaled Oxygen Concentration - - Weight 68 kg (150 lb) 04/08/2020 1:42 PM DUST OPERATOR Height 167.6 cm (5' 6) 04/08/2020 1:42 PM DUST OPERATOR Body Mass Index 24.21 04/08/2020 1:42 PM DUST OPERATOR Plan of Treatment Health Maintenance Due Date [...] 06/26/2019 Influenza Immunization (#1) 2023 SARS-COV-2 Immunization (1 - 2023-25 season) 2023 Respiratory Syncytial Virus (RSV) Immunization [...] this topic Insurance MEDICAID [place] Care Teams Radio Division Officer Relationship Specialty Start Date End Date Provider, None [place] PCP - General 04/08/20
--- OUTSIDE RECORDS SUMMARY | 2024-09-28 08:33 | XMS_ITS | Data Portability ---
Author Organization Harshil UGALDE Address [address] [facility] [place] [address] Care Team Providers Care Health Analyst Name Role Phone RAKAN TRIVEDI Primary Care Provider MARYBETH VERMA Vascular Surgeon Assessment No assessment recorded. Plan of Treatment Reminders Order Date Submit Date Provider Last Modified By Organization Details Last Modified Time Details Appointments None recorded. Lab lipid panel, serum 2020 [facility], [address] [place] [address], [address], [place], [address], 03:02:13 CMP, serum or plasma 2020 [facility], [address] [place] [address], [address], [place], [address], 03:02:13 vitamin D, 25-hydrox y, total, serum 2020 [facility], [address] [place] [address], [address], [place], [address], 03:02:13 CBC w/ auto diff 2020 [facility], [address] [place] [address], [address], [place], [address], 03:02:14 TSH, ultra-sen sitive, serum 2020 022 [facility], [address], [address], [place], [address], 2 03:02:14 HbA1c (hemoglob in A1c), blood 2020 022 [facility], [address], [address], [place], [address], 2 03:02:14 lipid panel, serum 2020 021 [facility], [address], [address], [place], [address], 1 03:05:00 CMP, serum or plasma 2020 021 [facility], [address], [address], [place], [address], 1 03:05:01 CBC w/ auto diff 2020 021 [facility], [address], [address], [place], [address], 1 03:05:01 TSH, ultra-sen sitive, serum 2020 021 [facility], [address], [address], [place], [address], 1 03:05:01 vitamin D, 25-hydrox y, total, serum 2020 021 [facility], [address], [address], [place], [address], 1 03:05:01 Referral cardiolog ist referral 2020 021 [email or web address] Not available 09:00:12 ENT referral 2020 021 [email or web address] [facility], [address], [place], [address], 09:42:00 vascular [facility] 2020 [email or web address], [address] [facility], [facility] [address], [place], [address], 13:29:55 Procedures None recorded. Surgeries None recorded. Imaging None recorded. Medication Orders lisinopri l 10 mg tablet 2020 [id number], [address], [place], [place], [id number], 21:50:08 famotidin e 20 mg tablet 2020 [facility], [address], [place], [place], [id number], 11:48:40 metoprolo l tartrate 50 mg tablet 2020 [facility], [address], [place], [place], [id number], 11:48:37 sertralin e 100 mg tablet 2020 [facility], [address], [place], [place], [id number], 11:48:37 neomycin- polymyxin -hydrocor t 3.5 mg-10,000 unit/mL-1 % ear drops,kimberlee p 2020 021 [email or web address] [facility] #11390, [address], [place], [place], [id number], 09:56:36 metoprolo l tartrate 50 mg tablet 2020 021 [facility] #[id number], [address] , [place], [place], [id number], 12:08:23 Patient TargetsNo targets recorded. Patient Instructions Encounter Date Encounter Id Patient Instructions Last Modified By Organization Details Last Modified Time 06/13/2020 [id number] 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 Not available 06/13/2020 12:08:11 Peripheral Arterial Disease (PAD): Care Instructions ssuthan Not available 06/13/2020 12:08:10 08/28/2020 [id number] high cholesterol : care instructions ssuthan Not available 08/28/2020 09:42:58 dizziness: care instructions ssuthan Not available 08/28/2020 09:42:58 learning about high blood pressure ssuthan Not available 08/28/2020 09:42:58 10/10/2020 [id number] 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 Not available 10/10/2020 11:48:28 high cholesterol : care instructions ssuthan Not available 10/10/2020 11:48:28 Peripheral Arterial Disease (PAD): Care Instructions ssuthan Not available 10/10/2020 11:48:28 02/28/2021 [id number] 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 Not available 02/28/2021 21:50:00 high cholesterol : care instructions ssuthan Not available 02/28/2021 21:50:00 Peripheral Arterial Disease (PAD): Care Instructions ssuthan Not available 02/28/2021 21:50:00 learning about high blood pressure ssuthan Not available 02/28/2021 21:50:00 Reason for Referral Vascular Referral for Periph eral arterial occlusive disease Referring Physician: Rakan Trivedi, Internal Medicine, Encounter Date: 06/13/2020 National Secretary Referral for Wo zsq-Sruxzrgnp-Zpbkb pattern Referring Physician: Rakan Trivedi, Internal Medicine, Encounter Date: 06/13/2020 ENT Referral for Acute otiti s externa Referring Physician: Rakan Trivedi, Internal Medicine, Encounter Date: 06/13/2020 Results Created Date Observation Date Name Description Value Unit Range Abnormal Flag Note LastModifiedBy Organization Detail LastModifiedTime 07/20/19 22 07/19/2021 COLOG UARD cologuard result Cancel led - Duplic ate Order not applic able Not Available [facility] (Cologuard Orders Only) [address], [place], [address], 07/19/2021 09:36:06 07/18/19 21 07/18/2020 CBC w/ auto diff WBC 9.1 x10e3 /uL 3.4-10 .8 Not Available [facility] [place] [facility] [address] [place], [address], 07/18/2020 07:11:11 07/18/19 21 07/18/2020 CBC w/ auto diff RBC 4.25 x10e6 /uL 3.77-5 .28 Not Available [facility] ([facility] [place] [facility] [address] [place], [address], 07/18/2020 07:11:11 07/18/19 21 07/18/2020 CBC w/ auto diff hemoglobin 13.3 g/dL 11.1-1 5.9 Not Available [facility] ([facility] [place] [facility] [address] [place], [address], 07/18/2020 07:11:11 07/18/19 21 07/18/2020 CBC w/ auto diff hematocrit 38.7 % 34.0-4 6.6 Not Available [facility] ([facility] [place] [facility] [address] [place], [address], 07/18/2020 07:11:11 07/18/19 21 07/18/2020 CBC w/ auto diff MCV 91 fL 79-97 Not Available [facility] ([facility] [place] [facility] [address] [facility], [place], [address], 07/18/2020 07:11:11 07/18/19 21 07/18/2020 CBC w/ auto diff MCH 31.3 pg 26.6-3 3.0 Not Available [facility] ([facility] [place] [facility] [address] [facility], [place], [address], 07/18/2020 07:11:11 07/18/19 21 07/18/2020 CBC w/ auto diff MCHC 34.4 g/dL 31.5-3 5.7 Not Available [facility] ([facility] [place] [place] [facility] [address] [facility], [place], [address], 07/18/2020 07:11:11 07/18/19 21 07/18/2020 CBC w/ auto diff RDW 13.1 % 11.7-1 5.4 Not Available [facility] ([facility] [place] [place] [facility] [address] [facility], [place], [address], 07/18/2020 07:11:11 07/18/19 21 07/18/2020 CBC w/ auto diff platelets 309 x10e3 /uL 150-45 0 Not Available [facility] ([facility] [place] [place] [facility] [address] [facility], [place], [address], 07/18/2020 07:11:11 07/18/19 21 07/18/2020 CBC w/ auto diff neutrophils 64 % not estab. Not Available [facility] ([facility] [place] [place] [facility] [address] [facility], [place], [address], 07/18/2020 07:11:11 07/18/19 21 07/18/2020 CBC w/ auto diff lymphs 28 % not estab. Not Available [facility] ([facility] [place] [place] [facility] [address] [facility], [place], [address], 07/18/2020 07:11:11 07/18/19 21 07/18/2020 CBC w/ auto diff monocytes 5 % not estab. Not Available [facility] ([facility] [place] [facility] [address] [place], [address], 07/18/2020 07:11:11 07/18/19 21 07/18/2020 CBC w/ auto diff eos 1 % not estab. Not Available [facility] ([facility] [place] [facility] [address] [place], [address], 07/18/2020 07:11:11 07/18/19 21 07/18/2020 CBC w/ auto diff basos 1 % not estab. Not Available [facility] ([facility] [place] [place] [facility] [address] [facility], [place], [address], 07/18/2020 07:11:11 07/18/19 21 07/18/2020 CBC w/ auto diff immature cells TABLE GAMES DUAL RATE SUPERVISOR Not Available [facility] ([facility] [place] [facility] [address] [place], [address], 07/18/2020 07:11:11 07/18/19 21 07/18/2020 CBC w/ auto diff neutrophils (absolute) 5.9 x10e3 /uL 1.4-7. 0 Not Available [facility] ([facility] [place] [facility] [address] [place], [address], 07/18/2020 07:11:11 07/18/19 21 07/18/2020 CBC w/ auto diff lymphs (absolute) 2.5 x10e3 /uL 0.7-3. 1 Not Available [facility] ([facility] [place] [place] [facility] [address] [place], [address], 07/18/2020 07:11:11 07/18/19 21 07/18/2020 CBC w/ auto diff monocytes(ab solute) 0.5 x10e3 /uL 0.1-0. 9 Not Available [facility] ([facility] [place] [place] [facility] [address] [facility], [place], [address], 07/18/2020 07:11:11 07/18/19 21 07/18/2020 CBC w/ auto diff eos (absolute) 0.1 x10e3 /uL 0.0-0. 4 Not Available [facility] ([facility] [place] [place] [facility] [address] [facility], [place], [address], 07/18/2020 07:11:11 07/18/19 21 07/18/2020 CBC w/ auto diff baso (absolute) 0.1 x10e3 /uL 0.0-0. 2 Not Available [facility] ([facility] [place] [place] [facility] [address] [facility], [place], [address], 07/18/2020 07:11:11 07/18/19 21 07/18/2020 CBC w/ auto diff immature granulocytes 1 % not estab. Not Available [facility] ([facility] [place] [place] [facility] [address] [facility], [place], [address], 07/18/2020 07:11:11 07/18/19 21 07/18/2020 CBC w/ auto diff immature grans (abs) 0.1 x10e3 /uL 0.0-0. 1 Not Available [facility] ([facility] [place] [facility] [address] [facility], [place], [address], 07/18/2020 07:11:11 07/18/19 21 07/18/2020 CBC w/ auto diff NRBC TABLE GAMES DUAL RATE SUPERVISOR Not Available [facility] ([facility] [place] [place] [facility] [address] [facility], [place], [address], 07/18/2020 07:11:11 07/18/1907/18/2020 CBC w/ auto diff hematology comments: TABLE GAMES DUAL RATE SUPERVISOR Not Available [facility] ([facility] [place] [place] [facility] [address] [facility], [place], [address], 07/18/2020 07:11:11 07/18/19 21 07/18/2020 CMP, serum or plasm a glucose 82 mg/dL 65-99 Not Available [facility] ([facility] [place] [place] [facility] [address] [place], [address], 07/18/2020 07:11:12 07/18/19 21 07/18/2020 CMP, serum or plasm a BUN 14 mg/dL 6-24 Not Available [facility] ([facility] [place] [facility] [address] [place], [address], 07/18/2020 07:11:12 07/18/19 21 07/18/2020 CMP, serum or plasm a creatinine 0.68 mg/dL 0.57-1 .00 Not Available [facility] ([facility] [place] [place] [facility] [address] [place], [address], 07/18/2020 07:11:12 07/18/1907/18/2020 CMP, serum or plasm a eGFR if nonafricn AM 102 mL/mi n/1.7 3 >59 Not Available [facility] ([facility] [place] [place] [facility] [address] [place], [address], 07/18/2020 07:11:12 07/18/19 21 07/18/2020 CMP, serum or plasm a eGFR if africn AM 117 mL/mi n/1.7 3 >59 Not Available [facility] ([facility] [place] [facility] [address] [place], [address], 07/18/2020 07:11:12 07/18/1907/18/2020 CMP, serum or plasm a BUN/creatini ne ratio 15 01- Not Available [facility] ([facility] [place] [facility] [address] [place], [address], 07/18/2020 07:11:12 07/18/1907/18/2020 CMP, serum or plasm a sodium 143 mmol/ L 134-14 4 Not Available [facility] ([facility] [place] [facility] [address] [place], [address], 07/18/2020 07:11:12 07/18/19 21 07/18/2020 CMP, serum or plasm a potassium 4.3 mmol/ L 3.5-5. 2 Not Available [facility] ([facility] [place] [facility] [address] [place], [address], 07/18/2020 07:11:12 07/18/19 21 07/18/2020 CMP, serum or plasm a chloride 105 mmol/ L 96-106 Not Available [facility] ([facility] [place] [facility] [address] [place], [address], 07/18/2020 07:11:12 07/18/19 21 07/18/2020 CMP, serum or plasm a carbon dioxide, total 24 mmol/ L 20-29 Not Available [facility] ([facility] [place] [place] [facility] [address] [place], [address], 07/18/2020 07:11:12 07/18/1907/18/2020 CMP, serum or plasm a calcium 9.2 mg/dL 8.7-10 .2 Not Available [facility] ([facility] [place] [place] [facility] [address] [place], [address], 07/18/2020 07:11:12 07/18/19 21 07/18/2020 CMP, serum or plasm a protein, total 7.2 g/dL 6.0-8. 5 Not Available [facility] ([facility] [place] [place] [facility] [address] [place], [address], 07/18/2020 07:11:12 07/18/19 21 07/18/2020 CMP, serum or plasm a albumin 4.4 g/dL 3.8-4. 9 Not Available [facility] ([facility] [place] [place] [facility] [address] [place], [address], 07/18/2020 07:11:12 07/18/19 21 07/18/2020 CMP, serum or plasm a globulin, total 2.8 g/dL 1.5-4. 5 Not Available [facility] ([facility] [place] [place] [facility] [address] [facility] [place], [address], 07/18/2020 07:11:12 07/18/19 21 07/18/2020 CMP, serum or plasm a A/G ratio 1.6 1.2-2. 2 Not Available [facility] ([facility] [place] [place] [facility] [address] [facility], [address], 07/18/2020 07:11:12 07/18/19 21 07/18/2020 CMP, serum or plasm a bilirubin, total 0.4 mg/dL 0.0-1. 2 Not Available [facility] ([facility] [place] [place] [facility] [address] [facility], [address], 07/18/2020 07:11:12 07/18/1907/18/2020 CMP, serum or plasm a alkaline phosphatase 94 IU/L 39-117 Not Available [facility] [place] [place] [facility] [address] [facility] [place], [address], 07/18/2020 07:11:12 07/18/1907/18/2020 CMP, serum or plasm a AST (SGOT) 16 IU/L 0-40 Not Available [facility] ([facility] [place] [place] [facility] [address] [facility], [address], 07/18/2020 07:11:12 07/18/1907/18/2020 CMP, serum or plasm a ALT (SGPT) 9 IU/L 0-32 Not Available [facility] ([facility] [place] [place] [facility] [address] [facility] [place], [address], 07/18/2020 07:11:12 07/18/1907/18/2020 lipid panel , serum cholesterol, total 204 mg/dL 100-19 9 above high normal Not Available [facility] ([facility] [place] [place] [facility] [address] [facility], [address], 07/18/2020 07:11:13 07/18/19 21 07/18/2020 lipid panel , serum triglyceride s 126 mg/dL 0-149 Not Available [facility] [place] [facility] [address] [facility], [place], [address], 07/18/2020 07:11:13 07/18/19 21 07/18/2020 lipid panel , serum HDL cholesterol 66 mg/dL >39 Not Available [facility] [place] [facility] [address] [place], [address], 07/18/2020 07:11:13 07/18/19 21 07/18/2020 lipid panel , serum VLDL cholesterol leslie 22 mg/dL 5-40 Not Available [facility] ([facility] [place] [facility] [address] [place], [address], 07/18/2020 07:11:13 07/18/19 21 07/18/2020 lipid panel , serum LDL chol calc ([facility]) 116 mg/dL 0-99 above high normal Not Available [facility] ([facility] [place] [facility] [address] [facility], [place], [address], 07/18/2020 07:11:13 07/18/19 21 07/18/2020 lipid panel , serum comment: TABLE GAMES DUAL RATE SUPERVISOR Not Available [facility] ([facility] [place] [facility] [address] [facility], [place], [address], 07/18/2020 07:11:13 07/18/19 21 07/18/2020 HbA1c (hemo globi n A1c), blood hemoglobin A1C 4.8 % 4.8-5. 6 Predi abete s: 5.7 - 6.4 Diabe tawnya: >6.4 Glyce dre contr ol for adult s with diabe tawnya: <7.0 Not Available [facility] ([facility] [place] [facility] [address] [place], [address], 07/18/2020 07:11:13 07/18/19 21 07/18/2020 TSH, ultra -sens itive , serum TSH 0.972 uIU/m L 0.450- 4.500 Not Available [facility] ([facility] [place] [facility] [address] [facility], [place], [address], 07/18/2020 07:11:14 07/18/19 21 07/18/2020 vitam in D, 25-hy droxy , total , serum vitamin D, 25-hydroxy 12.2 NG/mL 30.0-1 00.0 below low normal Vitam in D defic iency has been defin ed by the Insti tute of Medic ine and an Endoc rine Socie ty pract ice guide line as a level of serum 25-OH vitam in D less than 20 ng/mL (1,2) . The Endoc rine Socie ty went on to [facility] er defin e vitam in D insuf ficie ncy as a level betwe en 21 and 29 ng/mL (2). 1. IOM (Inst itute of Medic ine). 2009. Dieta ry refer ence intak es for calci um and D. Radha ramsey DC: The Natio nal [facility] Press . 2. Seven lamas MF, Evonne yousif NC, Johana off-F errar i COOK, et al. Evalu ation , treat ment, and preve ntion of vitam in D defic iency : an Endoc rine Socie ty clini leslie pract ice guide line. JCEM. 2010; 96(7) :1911 -30. Not Available [facility] ([facility] [place] [facility] [address] [facility], [place], [address], 07/18/2020 07:11:14 07/27/19 21 07/25/2020 US, doppl er, arter ial No observ ation record ed. [facility] [address], [place], [address], 07/26/2020 15:50:07 10/23/19 21 10/18/2020 angio gram (PROC ) No observ ation record ed. [facility] [address], [place], [address], 10/22/2020 11:00:32 Result Notes None recorded. 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 2019 Rakan Trivedi MD Attn: Accounting, [address] [place], [place], [address] [place] [address], [place] [facility] 0 11:02:48 Mixed anxiety and depressive disorder 414901645 Active 2019 Rakan Trivedi MD Attn: Accounting, [address] [place], [place], [address] [place] [address], [place] [facility] 0 11:04:04 Peripheral arterial occlusive disease 872078307 Active 2019 Rakan Trivedi MD Attn: Accounting, [address] [place], [place], [address] [place] [address], [place] [facility] 0 10:44:15 Pure hypercholest erolemia 132132463 Active 2020 Rakan Trivedi MD Attn: Accounting, [address] [place], [address], [place] [facility] 1 12:32:07 Vitamin D deficiency 68388251 Active 2020 Rakan Trivedi MD Attn: Accounting, [address] [place], [address], [place] [facility] 1 12:32:13 Gastroesopha geal reflux disease without esophagitis 072581400 Active 2020 Rakan Trivedi MD Attn: Accounting, [address] [place], [address], [place] [facility] 1 11:47:08 Marijuana user 042891414 Active 2020 Rakan Trivedi MD Attn: Accounting, [address] [facility] [place], [address], [facility] 12:47:06 Essential hypertension 02016670 Active 2020 Rakan Trivedi MD Attn: Accounting, [address] [facility], [place], [address], [facility] 12:47:51 Problem Notes None recorded. Procedures Surgical History Date Name Laterality Status Provider Name and Address Organization Details Recorded Time Cerumen Removal completed Meri Brenton Camila [place] - [facility] 02/28/2021 13:09:05 Imaging Results None recorded. Procedure Notes None recorded. Medical Equipment None Reported. Allergies No known drug allergies Medications Name Sig Start Date Stop Date Status Note LastModified by Organization Details LastModified Time atorvastati n 10 mg tablet Take 1 tablet every day by oral route at dinner. 06/13 completed Not Available Not Available Not Available fluconazole 150 mg tablet TAKE 1 TABLET BY MOUTH 1 TIME 02/28 completed Not Available Not Available Not Available hydrocodone 5 mg-acetamin ophen 325 mg tablet TAKE 1 TABLET BY MOUTH EVERY 6 HOURS NEEDED FOR PAIN 06/19 completed Not Available Not Available Not Available sertraline 100 mg tablet TAKE 1 TABLET BY MOUTH EVERY DAY 2020 active Not Available Not Available Not Avai lable aspirin 81 mg tablet,silvino yed release Take 1 tablet every day by oral route. 2019 active Not Available Not Available Not Avai lable ofloxacin 0.3 % ear drops INSTILL 10 DROPS IN AFFECTED EAR(S) ONCE DAILY DIRECTED 06/13 completed Not Available Not Available Not Available famotidine 20 mg tablet TAKE 1 TABLET BY MOUTH TWICE DAILY NEEDED active Not Available Not Available No t Available lisinopril 10 mg tablet TAKE 1 TABLET BY MOUTH EVERY DAY 2021 active Not Available Not Available Not Avai lable metoprolol tartrate 50 mg tablet TAKE 1 TABLET BY MOUTH TWICE DAILY *Please schedule an appointme nt with your PCP prior to needing future refills.* 2021 active Not Available Not Available Not Avai lable methylpredn isolone 4 mg tablets in a dose pack FOLLOW PACKAGE DIRECTION S 08/28 completed Not Available Not Available Not Available cefdinir 300 mg capsule TAKE 1 CAPSULE BY MOUTH EVERY 12 HOURS 06/13 completed Not Available Not Available Not Available sertraline 50 mg tablet Take 1 tablet every day by oral route. 02/13 completed Not Available Not Available Not Available diazepam 5 mg tablet 08/28 completed Not Available Not Available Not Available amoxicillin 875 mg-potassiu m clavulanate 125 mg tablet TAKE 1 TABLET BY MOUTH EVERY 12 HOURS FOR 10 DAYS 08/28 completed Not Available Not Available Not Available neomycin-po lymyxin-hyd rocort 3.5 mg-10,000 unit/mL-1 % ear drops,susp INSTILL 4 DROPS IN AFFECTED EAR(S) THREE TIMES DAILY 06/19 completed Not Available Not Available Not Available ciprofloxac in 0.3 %-dexametha sone 0.1 % ear drops,suspe nsion SHAKE LIQUID AND INSTILL 4 DROPS TO AFFECTED EAR TWICE DAILY FOR 7 DAYS 08/28 completed Not Available Not Available Not Available rosuvastati n 5 mg tablet TAKE 1 TABLET BY MOUTH DAILY active Not Available Not Available No t Available rosuvastati n 10 mg tablet Take 1 tablet every day by oral route at dinner. 07/18 completed Not Available Not Available Not Available omeprazole 10/10 completed Not Available Not Available Not Available Vitamin D3 50 mcg (2,000 unit) tablet TAKE 1 TABLET BY MOUTH EVERY DAY *Please schedule appointme nt with your PCP prior to future renewals. * 2021 active Not Available Not Available Not Avai lable Vitals Date Recorded Body height Provider Name an d Address Organization Details Last Updated DateTime 06/13/2020 165.1 cm Ana Wetzel MA [facility] 021 10:54:12 Date Recorded Body height Provider Name an d Address Organization Details Last Updated DateTime 06/19/2020 167.64 cm Mayte Sierra [facility] 09:57:01 Date Recorded Body height Provider Name an d Address Organization Details Last Updated DateTime 08/28/2020 167.64 cm Ana Wetzel MA [facility] 08:55:25 Date Recorded Body height Provider Name an d Address Organization Details Last Updated DateTime 10/10/2020 167.64 cm Ana Wetzel MA [facility] 10:15:21 Date Recorded Body height Body mass index (BMI) Body weight Respiratory rate Body temperature Heart rate Oxygen saturation Oxygen saturation in Arterial blood by Pulse oximetry Systolic blood pressure Diastolic blood pressure Provider Name and Address Organization Details Last Updated DateTime 167.64 cm 28.1 kg/m2 37931.2 2 g 16 /min 96.2 [degF] 58 /min 96 % 96 % 150 mm[Hg] 100 mm[Hg] BRIAN Monae [facility] 12:05:20 Social History Question Answer Notes LastModified by Organizat ion Details LastModified Time Tobacco Smoking Status Former Smoker Ana Wetzel MA [facility], [facility] 12/14/2019 09:27:20 Are You Blind Or Do You Have Difficulty Seeing? No Information n ot available 08/28/2020 What Is Your Level Of Caffeine Consumption? Heavy Information not available 08/28/2020 In The 14 Days Before Symptom Onset, Have You Had Close Contact With A Laboratory-confirm ed COVID-19 While That Case Was Ill? No Information n ot available 02/28/2021 In The 14 Days Before Symptom Onset, Have You Had Close Contact With A Person Who Is Under Investigation For COVID-19 While That Person Was Ill? No Information not available 02/28/2021 Have You Been To An Area Known To Be High Risk For COVID-19? No Information not available 02/28/2021 Are You Deaf Or Do You Have Serious Difficulty Hearing? No Information not available 08/28/2020 What Type Of Diet Are You Following? REGULAR Information n ot available 08/28/2020 Are There Any Guns Present In Your Home? No Information not available 08/28/2020 What Was The Date Of Your Most Recent Tobacco Screening? 02/28/2021 Information not available 02/28/2021 What Is Your Relationship Status? Information not available 08/28/2020 Do You Use Your Seat Belt Or Car Seat Routinely? Yes Information not available 02/28/2021 Do You Have Smoke And Carbon Monoxide Detectors In Your Home? Yes Information not available 08/28/2020 Do You Use Sunscreen Routinely? No Information not available 08/28/2020 Has Tobacco Cessation Counseling Been Provided? Yes Information not available 08/28/2020 On What Date Was Tobacco Cessation Counseling Provided? 08/28/2020 Information not available 08/28/2020 Sex: Female Functional Status Question Answer Note LastModified by Organizat ion Details LastModified Time Do you use any illicit or recreational drugs? Yes Information not available 02/28/2021 What is your level of alcohol consumption? None Information not available 08/28/2020 Are you able to care for yourself? Yes Information not available 08/28/2020 What is your exercise level? None Information not available 08/28/2020 Mental Status None recorded. Family History Relationship Description Onset Age of this Age Resolved Age Notes LastModified by Organization Details LastModified Time Mother Diabetes mellitus [email or web address] Not available 12/13 09:26:56 Father Diabetes mellitus ssuthan Not available 2019 11:06:32 Father Leukemia ssuthan Not available 12/14/2019 11:06:57 Daughter Family history of complete trisomy 21 syndrome ssuthan Not available 2019 11:07:17 Medical History Condition Response Depression Y Gynecological HistoryNo gynecological history recorded. Obstetrics History GPAL:G 0 P 0 0 0 0 Past Encounters Encounter ID Performer Location Encounter Start Date Encounter Closed Date Diagnosis/Indication Diagnosis SNOMED-CT Code Diagnosis ICD10 Code Diagnosis Note [id number] MD Norma Morgan 14 [address] [facility] [place] [address] 12/14/2019 08:55:49 12/15/2019 07:56:05 Mixed anxiety and depressive disorder 577244066 F41.8 Used to be on sertraline , needs some help since recent divorce, start back on sertraline 50mg daily, Aware of SEs History of occlusive disease of artery of lower extremity 312785176 Z86.79 H/o femoral bypass in 2012was under care by , not recently due to no insurance [facility] 08484560 I45.6 Diagnosed case on met tartarate for a while Long-term drug therapy 211914758 Z79.344 [id number] MD Norma Morgan [address] IM [address] [facility] [place] [address] 02/14/2020 08:07:41 02/15/2020 09:42:47 Mixed anxiety and depressive disorder 972939101 F41.8 Used to be on sertraline , needs some help since recent divorce, start back on sertraline 50mg daily, Aware of SEs 0 not optimal but feels better than before. denies SEs.increa se sertraline to 100mg daily ShawnHerminia inson-White pattern 09313227 I45.6 Diagnosed case on met tartrate (although is a second line Rx) for a whilePt to f/u with her Cardio/Vas cular Peripheral arterial occlusive disease 195369881 I73.9 h/o stent before per the pt, per Long-term drug therapy 298282936 Z79.899 Screening for malignant neoplasm of colon 233298498 Z12.11 Screening mammography 24 045043 Z12.31 [id number] MD Norma Morgan 14 IM [address] [facility] [place] [address] 05/24/2020 08:22:22 05/25/2020 17:16:35 Acute otitis externa 24801090 H60.509 Use the ear dropTake tylenol PRNif getting worse call/go to ER [id number] MD Norma Morgan [address] [place] [address] 06/13/2020 09:06:27 06/14/2020 14:58:37 Mixed anxiety and depressive disorder 309098214 F41.8 Symptomati adia feels lot better.Ct all medication . deep breathing exercise as explained. Awre of medication side effects (weird dream/suic idal thoughts- to stop medication and call the office) Peripheral arterial occlusive disease 583998950 I73.9 h/o stent before per the pt, per [facility] on board, wants a referralpt not on atorvastat in, want to hold it (muscle pain) as planning to do labs sooner then will decide dose /type ShawnHerminia inson-White pattern 17648070 I45.6 Diagnosed case on met tartrate (although is a second line Rx) for a whilePt to f/u with her Cardio/Vas stefanieRoselia cardio on board, wants a referral Screening for malignant neoplasm of colon 026272292 Z12.11 Acute otitis externa 302 32286 H60.509 Use the ear dropTake tylenol PRNif getting worse call/go to ER06/13/20H aving issue on L/side nowsince pt has been getting frequent either ear infection, agree to see ENT Long-term drug therapy 580703133 Z79.899 Renewal of prescription 162000186 Z76.0 [id number] Alvarado Simon MD [facility] [address] [place] [address] 06/19/2020 09:54:24 06/22/2020 15:02:48 Otitis externa 4449429 H60.91 keep ear dry and follow up in office Otalgia of right ear 977 3908062 729575 H92.01 [id number] MD Norma Morgan 14 IM [address] [facility] [address] [place] [address] 08/28/2020 08:42:59 08/29/2020 11:45:04 Essential hypertension 01318747 I10 Elevated 150/100 Increase met tartarate to 100mg BID ad call back with BP in 3 days low salt diet emphasized . Dizziness 269203279 R42 Almost resolved, may be due to # 1 above Pt awaiting VNG on 09/17/20 per the ENT Vitamin D deficiency 347 35914 E55.9 Taking daily D3 Pure hypercholesterolemia 092853253 E78.00 TC 204, LDL 116 Increase crestor to 10mg daily recommend low fatty diet including red meat 08/28/20 On crestor 5mg per the vascular team, will f/u Low cholestrol diet Episodic c hronic alcoholism 114279735 F10.20 Recommend to slow efrain couple of wine ? once/month Marijuana user 661840101 F12.90 Recommend to stay away from it- 1 joint daily Screening for malignant neoplasm of colon 850194645 Z12.11 [id number] MD Norma Morgan 14 IM [address] [facility] [place] [address] 10/10/2020 08:22:31 10/11/2020 11:35:25 Pure hypercholesterolemia 954718758 E78.00 08/28/20 On crestor 5mg per the vascular team, will f/u Low cholestrol diet 1Feels welllow cholestrol diet Peripheral arterial occlusive disease 801656503 I73.9 h/o stent before per the pt, per [facility] on board, wants a referralpt not on atorvastat in, want to hold it (muscle pain) as planning to do labs sooner then will decide dose /typeAwaiting b/u artertiogr am- 10/18/20 Vitamin D deficiency 347 52980 E55.9 Taking daily D3 [facility] inson-White pattern 06620788 I45.6 Diagnosed case on met tartrate (although is a second line Rx) for a whilePt to f/u with her Cardio/Vas cularRoselia cardio on board, wants a referralDoes see vascular/C ardio Mixed anxi ety and depressive disorder 208206462 F41.8 Symptomati adia feels lot better.Ct all medication . deep breathing exercise as explained. Awre of medication side effects (weird dream/suic idal thoughts- to stop medication and call the office) Gastroesop hageal reflux disease without esophagitis 614018148 K21.9 Loose weight , avoid soda, spicy stuffUse medication as prescribed . Renewal of prescription 404087018 Z76.0 [id number] MD Norma Morgan 14 IM [address] [facility] [place] [address] 02/28/2021 11:17:35 03/01/2021 15:33:08 Pure hypercholesterolemia 636127586 E78.00 08/28/20 On crestor 5mg per the vascular team, will f/u Low cholestrol diet 1Feels welllow cholestrol diet Gastroesop hageal reflux disease without esophagitis 953156933 K21.9 Loose weight , avoid soda, spicy stuffUse medication as prescribed . Mixed anxi ety and depressive disorder 469968360 F41.8 Symptomati adia feels lot better.Ct all medication . deep breathing exercise as explained. Awre of medication side effects (weird dream/suic idal thoughts- to stop medication and call the office) Peripheral arterial occlusive disease 892812778 I73.9 h/o stent before per the pt, per [facility] on board, wants a referralpt not on atorvastat in, want to hold it (muscle pain) as planning to do labs sooner then will decide dose /typeAwaiting b/u artertiogr am- 10/18/211008/15Angiog greyson (10/19/20): Occluded distal common mary A, occluded femoral-fe moral bypass graft & iliopoplit eal peripheral vascular diseaserec ommend to f/u Kristen inson-White pattern 96074152 I45.6 Diagnosed case on met tartrate (although is a second line Rx) for a whilePt to f/u with her Cardio/Vas stefanieRoselia cardio on board, wants a /4/21Does see vascular/C ardio Vitamin D deficiency 347 43342 E55.9 Taking daily D3 Screening for malignant neoplasm of colon 968968950 Z12.11 Yet to do cologuard- has the kit at home Long-term drug therapy 103821271 Z79.899 Influenza vaccination declined 199437527 Z28.21 Marijuana user 477739244 F12.90 Recommend to stay away from it- upto 3 joint daily Essential hypertension 30787797 I10 Elevated 150/100 Increase met tartarate to 100mg BID ad call back with BP in 3 days low salt diet emphasized .02/28/21pt on met tar 50mg BID onlyAdd lisinopril 10mg dailyLow slat diet emphasized . Impacted c erumen of bilateral ears 8208161813 194477 H61.23 Wants to be flushed Health Concerns Section Related Observation LastModified by Organization Detai ls LastModified Time None Recorded Concern Status LastModified by Organization Details LastModified Time None Recorded Advance Directives Directive None Recorded Payers Encounter Date Sequence Insurance Name Policy Number Policy Elliott Covered Member ID Elliott Member ID Guarantor Name 06/13/2020 1 [place] [facility] (MEDICAID REPLACEMENT - HMO) [id number] Emy Chiang [id number] Emy Chiang 06/19/2020 1 [place] [facility] ([place]ID REPLACEMENT - [place]MO) [id number] Emy Chiang [id number] Emy Chiang 08/28/2020 1 [place] [facility] (MEDICAID REPLACEMENT - [place]MO) [id number] Emy Chiang [id number] Emy Chiang 10/10/2020 1 [place] [facility] (MEDICAID REPLACEMENT - [place]MO) [id number] Emy Chiang [id number] Emy Chiang 02/28/2021 1 [place] [facility] (MEDICAID REPLACEMENT - HMO) [id number] Emyrena Chiang [id number] Emy Chiang Notes Date Note Type Note Provider Name and Address Organization Details Recorded Time 1 text/html Anxiety/DepressionReport ed bypatient.Quality:sympto ms improved Severity:denies suicidal ideations; does not interfere with activities of daily living Duration:stablizing Onset/Timing:gradual Modifying Factors:counselling; medications as directed Associated Symptoms:denies homicidal ideations; mood good; no crying spells; sleeping wellNotes:Feels wellEaracheReported bypatient.Location:right Quality:aching Severity:continuous Duration:started: (6-7 days) Timing:gradual Context:no sick contacts Modifying Factors:does not hurt to chew;hurts to lie on, or pull on ear Associated Symptoms:no discharge from the ears; no hearing loss; no nose/sinus problemsNotes:06/13/20R/e ar better, now having issue on L/earPer the pt , having recurrent either ear infection in the last 2 yrsdenies fever/chills.Generic HPI TemplateReported bypatient.Notes:Here to establish as a new ptDiagnosed case of WPWS also PAD s/p stent vs later bypass per in 2011 was under care by and was on met tartarate 50mg BID + sertraline in the past.02/14/20till not have the physical card for medical coverage to f/u with her cardiologist06/13/20Yet to see a Cardio, wants referralhad issue with R/foot, broke , was on a boot per bean picker machine operator Lennox Leigh, now better, weightbearing.Hyperlipid emiaReported bypatient.Duration:chron ic Control:improving Current Therapy:currently taking: (med as prescribed) Compliance:compliant with diet Complications:no coronary artery diseaseNotes:on atorvastatin from her previous PCP, continuing the Rx Patient verbally consented for the phone visitUsed to work in a Trelligenceel Diegorhoda Trivedi MD Attn: Accounting,[address] [place], [address], [facility] 06/13/2020 15:42:08 1 text/html Pt complaining of ear pain. She had an ear infection and was treated with antibiotics and drops. She had blockage and bloody drainage but is improving with the meds. She still has a mild blocked sensation Alvarado Simon MD [address] [place], [address], [facility] 06/19/2020 11:15:29 1 text/html Emergency Room Follow-Up RecordReported bypatient.Notes:Pt was evaluated at [facility] 08/18/20 s/p sudden onset spinning of roomDiagnosed case of WPWS, HLD,PAD, depression/ALYX.Further query at ER shows pt was the night before consumed alcohol and seems somewhat intoxicated when presented to the ER and does smoke marijuana.W/u not revealed much been Rxed as BPPV and send home after valium improved her symptomsDid see ENT on 07/23 for recurrent L/ear issue, cerumen removed again on 08/22/20 after the ER visit who planned audio VNG and f/u. VNG to be done on 09/17/20 per the ptClinically pt doing better with no ear issue (hearing/pain), does agree drinking 1-2 glasses of wine once/month 'when going out with a couple' Does smoke 1 joint weed for a long time (>30 yrs)BP at home 150/100- fitarah is a chief operations officer Patient verbally consented for the phone visitFiance is chief operations officer Rakan Trivedi MD Attn: Accounting,[address] [facility], [place], [address], [facility] 08/28/2020 13:48:46 1 text/html Anxiety/DepressionReport ed bypatient.Quality:sympto ms improved Severity:denies suicidal ideations; does not interfere with activities of daily living Duration:stablizing Onset/Timing:gradual Modifying Factors:counselling; medications as directed Associated Symptoms:denies homicidal ideations; mood good; no crying spells; sleeping wellNotes:Feels wellEmergency Room Follow-Up RecordReported bypatient.Notes:Pt was evaluated at [facility] 08/18/20 s/p sudden onset spinning of roomDiagnosed case of WPWS, HLD,PAD, depression/ALYX.Further query at ER shows pt was the night before consumed alcohol and seems somewhat intoxicated when presented to the ER and does smoke marijuana.W/u not revealed much been Rxed as BPPV and send home after valium improved her symptomsDid see ENT on 07/23 for recurrent L/ear issue, cerumen removed again on 08/22/20 after the ER visit who planned audio VNG and f/u. VNG to be done on 09/17/20 per the ptClinically pt doing better with no ear issue (hearing/pain), does agree drinking 1-2 glasses of wine once/month 'when going out with a couple' Does smoke 1 joint weed for a long time (>30 yrs)BP at home 150/100- fitarah is a chief operations officer 10/10/20pt in [place], dad having leukemia on hospice now hence cancelled audio VNG ect- but clinically feels wellFinally doppler arteriogram approved and scheduled to be done on 10/18/20HyperlipidemiaRep orted bypatient.Duration:chron ic Control:improving Current Therapy:currently taking: (med as prescribed) Compliance:compliant with diet Complications:no coronary artery diseaseNotes:on atorvastatin from her previous PCP, continuing the Rx10/10/20On crestor per the Vascular recently, doing OKReflux/GERDReported bypatient.Symptomsheartb urn Quality:burning Severity:waking up at night Duration:present 5 or more years Context:non-smoker; no drug/alcohol abuse Alleviating Factors:protein pump inhibitors (OTC, agree to consider famotidine if tolerates) Associated Symptoms:no difficulty swallowing; no weight loss Patient verbally consented for the phone visitFiance is paramedicUsed to work in a [employer] Rakan Trivedi MD Attn: Accounting,[address] [facility], [place], [address], [facility] 10/10/2020 23:50:58 1 text/html Anxiety/DepressionReport ed bypatient.Quality:sympto ms improved Severity:denies suicidal ideations; does not interfere with activities of daily living Duration:stablizing Onset/Timing:gradual Modifying Factors:counselling; medications as directed Associated Symptoms:denies homicidal ideations; mood good; no crying spells; sleeping wellNotes:Feels wellEmergency Room Follow-Up RecordReported bypatient.Notes:Pt was evaluated at [facility] 08/18/20 s/p sudden onset spinning of roomDiagnosed case of WPWS, HLD,PAD, depression/ALYX.Further query at ER shows pt was the night before consumed alcohol and seems somewhat intoxicated when presented to the ER and does smoke marijuana.W/u not revealed much been Rxed as BPPV and send home after valium improved her symptomsDid see ENT on 07/23 for recurrent L/ear issue, cerumen removed again on 08/22/20 after the ER visit who planned audio VNG and f/u. VNG to be done on 09/17/20 per the ptClinically pt doing better with no ear issue (hearing/pain), does agree drinking 1-2 glasses of wine once/month 'when going out with a couple' Does smoke 1 joint weed for a long time (>30 yrs)BP at home 150/100- fiance is a chief operations officer 10/10/20pt in [place], dad having leukemia on hospice now hence cancelled audio VNG ect- but clinically feels wellFinally doppler arteriogram approved and scheduled to be done on 10/18/2110Angiogram (10/19/20): Occluded distal common iliac A, occluded femoral-femoral bypass graft & iliopopliteal peripheral vascular diseaseStill walking a long distance hurts more, Yet to see the vascular since the reportVNG was not pursued as symptoms of dizzyness better after the exercise they recommended. no ETOH latelystill smokes weed 2-3 joints/daynot covid vaccinated nor wants flu shot.dad passed awy.HyperlipidemiaReport ed bypatient.Duration:chron ic Control:improving Current Therapy:currently taking: (med as prescribed) Compliance:compliant with diet Complications:no coronary artery diseaseNotes:10/10/20On crestor per the Vascular recently, doing OKHypertension F/UReported bypatient.Associated Symptoms:no dizziness; no lightheadedness; headaches + Medications:taking medications as directed; no side effects from medicationNotes:WPW syndrome- under care by vascular/cardioReflux/GE RDReported bypatient.Symptomsheartb urn Severity:waking up at night Duration:present 5 or more years Context:non-smoker; no drug/alcohol abuse Alleviating Factors:protein pump inhibitors (OTC, agree to consider famotidine if tolerates) Associated Symptoms:no difficulty swallowing; no weight loss Fiance is paramedicUsed to work in a Trelligenceel Rakan Trivedi MD Attn: Accounting,[address] [facility], [place], [address], [facility] 02/28/2021 21:50:04 OBGyn Episode No OBEpisode recorded.
--- OUTSIDE RECORDS SUMMARY | 2024-09-28 08:33 | XMS_ITS | CONTINUITY OF CARE DOCUMENT ---
Author Name agustina berrios Address Unknown Organization [facility] Address [address] [place] [address] Phone [phone] Care Team Providers Care Engineering Leader Name Role Phone Jose Raul Weinstein MD Unavailable RYAN TRIVEDI MD Unavailable PROBLEMS Condition Status Date Provider Notes Screening active Jose Raul Weinstein MD PVD with claudication; h/o fem fem bypass active 07/05 Jose Raul Weinstein MD HTN essential active Jose Raul Weinstein MD Hyperlipidemia active Jose Raul Weinstein MD GERD active Jose Raul Weinstein MD ENCOUNTERS Date Type Provider Location Encounter Diag nosis - In-person encounter Office Visit Jose Raul Weinstein MD [place] [facility] - In-person encounter Office Visit Jose Raul Weinstein MD [place] [facility] ScreeningPVD with claudication; h/o fem fem bypassHTN essentialHyperlipidemiaGERD VITAL SIGNS Date Observation Value Provider Body Mass Index (Ratio) 25.53 kg/m2 Pee Weinstein MD blood pressure, cuff size regular Ke rri Manuel blood pressure, diastolic 70 mm[Hg] Ke rri Manuel blood pressure, systolic 134 mm[Hg] Debbie Jackson oxygen saturation, oximetry 98 % Keren Jackson respiratory rate E&M 16 /min Keren alberts pulse rate 65 /min Keren Pete lder weight E&M 163 [lb_av] Keren Juan R lder height E&M 67 [in_i] Keren dysoner Body Mass Index (Ratio) 25.53 kg/m2 Pee Weinstein MD blood pressure, cuff size large Ke rrnia Jackson blood pressure, diastolic 84 mm[Hg] Ke rrnia Jackson blood pressure, systolic 142 mm[Hg] Debbie Jackson oxygen saturation, oximetry 96 % Keren Jackson respiratory rate E&M 16 /min Keren alberts pulse rate 69 /min Keren dysoner weight E&M 163 [lb_av] Keren dysoner height E&M 67 [in_i] Keren Pete [facility] ALLERGIES Allergy Name Onset Date Reaction Criticality Status LIPITOR Diarrhea Diarrhea High Criticality a ctive HISTORY OF MEDICATION USE Medication Status Instructions Dates Provider Indications Com ments CRESTOR 5 MG ORAL TABLET active ONE TAB. DAILY 1 Jose Raul Weinstein MD OMEPRAZOLE 40 MG ORAL CAPSULE DELAYED RELEASE active once a day 1 Keren Jackson ZOLOFT 50 MG ORAL TABLET active once a day 1 Keren Jackson METOPROLOL TARTRATE 50 MG ORAL TABLET active one tab. twice daily 1 Keren Jackson SOCIAL HISTORY Date Observation Value Provider social history E&M S moking History: P atient has never smoked. Jose Raul Weinstein MD social history reviewed E&M revi ewed - no changes required Jose Raul Weinstein MD smoking status Never smoker Keren dumont number of grandchildren Jose Raul Weinstein MD U robin Weinstein MD social history E&M S moking History: Yoly lan has never smoked. Jose Raul Weinstein MD social history reviewed E&M revi ewed - no changes required Jose Raul Weinstein MD smoking status Never smoker Keren Sotomayorvaishali dumont INSURANCE PROVIDERS Payer name Policy type / Coverage type [place] red green party ID [facility] [id number] ADVANCE DIRECTIVES Name Date DISCUSSED - NO DECISION MADE TREATMENT PLAN Date Name Performer Cardiology Follow up : H er updated medication list for this problem includes: Omeprazole 40 Mg Oral Capsule Delayed Release (Omeprazole) ..... Once a day Jose Raul Weinstein MD Cardiology Follow up :She was started on Crestor at last ofc visit and is tolerating this fine Her updated medication list for this problem includes: Crestor 5 Mg Oral Tablet (Rosuvastatin calcium) ..... One tab. daily Jose Raul Weinstein MD Cardiology Follow up : B P today: 134/70 P rior BP: 142/84 (07/05/2020) Her updated medication list for this problem includes: Metoprolol Tartrate 50 Mg Oral Tablet (Metoprolol tartrate) ..... One tab. twice daily Jose Raul Weinstein MD Cardiology Follow up :Schedule CTA AIF and AIF intervention at E. JENNIFER 06/2020 C ONCLUSIONS: 1 . Severe arterial disease of the lower extremities bilaterally. 2 . Monophasic waveforms throughout the lower extremities bilaterally. 3 . Unable to image Fem-Fem bypass due to proximal anastamosis. Jose Raul Weinstein MD Cardiology New Patie nt :Patient is having lifestyle limiting claudication sx. Will add statin and check JENNIFER Jose Raul Weinstein MD Cardiology New Patie nt :Not currently on cholesterol therapy. Will add Crestor 5mg. Patient has previously been tried on Lipitor but this gave her diarrhea. Jose Raul Weinstein MD Cardiology New Patie nt : H er updated medication list for this problem includes: Metoprolol Tartrate 50 Mg Oral Tablet (Metoprolol tartrate) ..... One tab. twice daily BP today: 142/84 Jose Raul Weinstein MD Date Name AIF Intervention - C NE CT Angio AIF (Abdsanya extremities) Arterial Duplex Bi-Sanya nunes EX HISTORY OF PROCEDURES Procedure Date Procedure Name Provider Procedure Notes S tatus EKG Jose Raul Weinstein MD completed
--- NOTE | 2024-09-28 08:34 | EST_ITS ---
Patient Info Name: Emy Chiang Age: 54 years : 1970 Gender: Female Ht: 66 in Wt: 137 lbs BSA: 1.70 m2 HR: 72 bpm BP: 173 / 86 mmHg Exam Date: 09/28/2024 8:34 AM Patient Status: O Admit Date: 09/28/2024 Exam Type: CA stress test treadmill w NM A nuclear stress test was performed. Staff Referring Physician: Kadeem Mendes DO Attending Provider: Kadeem Mendes DO Exercise Technologist: Tiffanie Graham Exercise Physician: Kadeem Mendes DO Summary 1. 1. Abnormal Fox exercise stress test for ischemic ST changes by ECG criteria. 2. 2. Reduced functional capacity, achieving 7 METs of workload. 3. 3. Baseline hypertension with hypertensive response to exercise. 4. 4. Appropriate HR response to exercise. 5. 5. Appropriate HR recovery at 1 minute post exercise. 6. 6. Nuclear scan to follow and will be reported separately. Please correlate with it. 7. 7. Patient informed of the above results. Protocol: Fox Stress ECG Details Stage: REST Duration (min): 2 min : 14 sec Speed (mph): 0.0 Grade (%): 0 HR (bpm): 72 SBP (mmHg): 173 DBP (mmHg): 86 METS: --- Stage: REST Duration (min): 10 min : 3 sec Speed (mph): 0.0 Grade (%): 0 HR (bpm): 88 SBP (mmHg): 173 DBP (mmHg): 86 METS: --- Stage: STAGE 1 Duration (min): 1 min : 0 sec Speed (mph): 1.7 Grade (%): 10 HR (bpm): 97 SBP (mmHg): 173 DBP (mmHg): 86 METS: --- Stage: STAGE 1 Duration (min): 2 min : 0 sec Speed (mph): 1.7 Grade (%): 10 HR (bpm): 124 SBP (mmHg): 173 DBP (mmHg): 86 METS: --- Stage: STAGE 1 Duration (min): 3 min : 0 sec Speed (mph): 1.7 Grade (%): 10 HR (bpm): 119 SBP (mmHg): 209 DBP (mmHg): 100 METS: --- Stage: STAGE 2 Duration (min): 1 min : 0 sec Speed (mph): 2.5 Grade (%): 12 HR (bpm): 116 SBP (mmHg): 209 DBP (mmHg): 100 METS: --- Stage: STAGE 2 Duration (min): 2 min : 0 sec Speed (mph): 2.5 Grade (%): 12 HR (bpm): 121 SBP (mmHg): 210 DBP (mmHg): 102 METS: --- Stage: STAGE 2 Duration (min): 3 min : 0 sec Speed (mph): 2.5 Grade (%): 12 HR (bpm): 139 SBP (mmHg): 210 DBP (mmHg): 102 METS: --- Stage: RECOVERY Duration (min): 0 min : 59 sec Speed (mph): 0.0 Grade (%): 0 HR (bpm): 116 SBP (mmHg): 207 DBP (mmHg): 97 METS: --- Stage: RECOVERY Duration (min): 1 min : 59 sec Speed (mph): 0.0 Grade (%): 0 HR (bpm): 93 SBP (mmHg): 207 DBP (mmHg): 97 METS: --- Stage: RECOVERY Duration (min): 2 min : 59 sec Speed (mph): 0.0 Grade (%): 0 HR (bpm): 70 SBP (mmHg): 184 DBP (mmHg): 92 METS: --- Stage: RECOVERY Duration (min): 3 min : 42 sec Speed (mph): 0.0 Grade (%): 0 HR (bpm): 71 SBP (mmHg): 184 DBP (mmHg): 92 METS: --- Rest HR: 88 bpm Peak HR: 144 bpm Rest Sys BP: 173 mmHg Peak Sys BP: 210 mmHg Max Pred HR: 165 bpm % Max Pred HR: 87 % Target HR: 140 bpm Max RPP: 30,240 bpm*mmHg Ross Score: -4 BP Response: Patient exhibited a hypertensive response with stress Termination Reason: Reached target heart rate or workload Cardiac Symptoms: Shortness of breath Max ST Seg Deviation: -1.90 mm Total Time: 6 min : 0 sec Rest Hernandez BP: 86 mmHg Peak Hernandez BP: 102 mmHg Angina Score: None Total METS: 7.1 Resting ECG Sinus rhythm. Stress ECG [address] depression in inferior leads and V4-V6. Arrhythmias None. Report Signatures
--- NOTE | 2024-09-28 08:48 | ECHO_ITS ---
Patient Info Name: Emy Chiang Age: 54 years : 1970 Gender: Female Ht: 66 in Wt: 137 lbs BSA: 1.70 m2 HR: 60 bpm BP: 142 / 79 mmHg Technical Quality: Good Exam Date: 09/28/2024 8:55 AM Patient Status: O Admit Date: 09/28/2024 Exam Type: CA echo doppler color flow Complete two-dimensional, color flow and Doppler transthoracic echocardiogram is performed. Staff Referring Physician: Kadeem Mendes DO Clothing Patternmaker: Aurora Hurst Attending Provider: Kadeem Mendes DO Summary 1. Complete two-dimensional, color flow and Doppler transthoracic echocardiogram is performed. 2. Left ventricular chamber dimension is normal. 3. Left ventricular systolic function is normal, estimated at 55-60. 4. The left ventricular diastolic function is abnormal. 5. E/e' 10 is mildly elevated. 6. Left atrial chamber dimension is mildly enlarged. 7. There is trace mitral valve regurgitation. 8. There is trace tricuspid valve regurgitation. 9. No pulmonary hypertension, estimated pulmonary arterial systolic pressure is 23 mmHg. Left Ventricle E/e' 10 is mildly elevated. Left ventricular chamber dimension is normal. Left ventricular systolic function is normal, estimated at 55-60. The left ventricular diastolic function is abnormal. Right Ventricle Right ventricular chamber dimension is normal. Right ventricular systolic function is normal. Left Atria Left atrial chamber dimension is mildly enlarged. Right Atria Right atrial chamber dimension is normal. Aortic Valve The aortic valve is trileaflet. There is no aortic valve stenosis. There is no aortic valve regurgitation. Pulmonic Valve There is no pulmonic regurgitation. Mitral Valve There is no mitral valve stenosis. There is trace mitral valve regurgitation. Tricuspid Valve There is trace tricuspid valve regurgitation. No pulmonary hypertension, estimated pulmonary arterial systolic pressure is 23 mmHg. Pericardium/Pleural There is no pericardial effusion. Inferior Vena Cava Normal inferior vena cava with >50% collapse upon inspiration consistent with normal right atrial pressure, 5 mmHg. Aorta The aortic root size at the sinus of Valsalva is normal. Left Ventricular Outflow Tract Name Value Normal LVOT 2D LVOT Diameter 2.0 cm LVOT Doppler LVOT Peak Velocity 105 cm/s LVOT Peak Gradient 4 mmHg LVOT Mean Gradient 3 mmHg LVOT VTI 21 cm LVOT VTI/AV VTI Ratio 0.6 LVOT Stroke Volume 64 ml LVOT CO 15.7 l/min LVOT CI 9.2 l/min/m2 Pulmonic Valve Name Value Normal PV Doppler PV Peak Velocity 102 cm/s PV Peak Gradient 4 mmHg Mitral Valve Name Value Normal MV Diastolic Function MV E Peak Velocity 97 cm/s MV A Peak Velocity 76 cm/s MV E/A 1.3 MV Decel Time (PW) 193 ms MV Annular TDI MV E/e' (Septal) 11.8 MV E/e' (Lateral) 8.8 MV E/e' (Average) 10.3 Tricuspid Valve Name Value Normal TV Regurgitation Doppler TR Peak Velocity 211 cm/s TR Peak Gradient 18 mmHg Estimated PAP/RSVP RA Pressure 5 mmHg <=5 PA Systolic Pressure 23 mmHg <36 RV Systolic Pressure 23 mmHg <36 TV Annular TDI TV Lateral Isabella s' Velocity 10.3 cm/s >=9.5 Aorta Name Value Normal Ascending Aorta Ao Root Diameter (MM) 2.7 cm Ao Root Diam Index (MM) 1.6 cm/m2 Aortic Valve Name Value Normal AV Doppler AV Peak Velocity 175 cm/s AV Peak Gradient 12 mmHg AV Mean Gradient 6 mmHg AV VTI 37 cm AV Area (Cont Eq VTI) 1.8 cm2 >=3.0 AV Area (Cont Eq Griffin) 1.8 cm2 AV DI (Griffin) 0.60 AV Regurgitation 2D LVOT Area 3.0 cm2 Ventricles Name Value Normal LV Dimensions 2D/MM IVS Diastolic Thickness (2D) 0.9 cm 0.6-1.0 LVID Diastole (2D) 4.8 cm 3.8-5.2 LVIW Diastolic Thickness (2D) 1.0 cm 0.6-0.9 LVID Systole (2D) 3.5 cm 2.2-3.5 LVOT Diameter 2.0 cm LV Mass (2D Cubed) 153.76 g 67.00-162.00 LV Mass Index (2D Cubed) 90 g/m2 43-95 Relative Wall Thickness (2D) 0.40 <=0.42 LV Fractional Shortening/Ejection Fraction 2D/MM LV Fractional Shortening (2D) 28 % 27-45 LV EF (2D Teichholz) 54 % LV Diastolic Volume (4C MOD) 89 ml LV EF (4C MOD) 57 % LV Diastolic Volume (2C MOD) 77 ml LV EF (2C MOD) 54 % LV Diastolic Volume (BP MOD) 84 ml 46-106 LV Diastolic Volume Index (BP MOD) 49 ml/m2 29-61 LV Systolic Volume (BP MOD) 36 ml 14-42 LV Systolic Volume Index (BP MOD) 21 ml/m2 8-24 LV EF (BP MOD) 57 % 54-74 LV Diastolic Length (4C) 7.4 cm LV Systolic Length (4C) 6.0 cm LV Stroke Volume (4C MOD) 51 ml RV Dimensions 2D/MM RVID Diastole (2D) 3.0 cm 2.1-3.5 Atria Name Value Normal LA Dimensions LA Dimension (MM) 3.7 cm 2.7-3.8 LA Volume (4C A-L) 70 ml LA Volume (BP A-L) 64 ml RA Dimensions RA Systolic Major Andes Length (4C) 4.7 cm 2.2-2.8 RA Area (4C) 13.1 cm2 <=18.0 Report Signatures
== END 2024-09-28 08:31 | disposition home or self-care (01) ==
PROVIDERS: PCP Nurse Practitioner Adult Health; Visit Provider Internal Medicine Cardiovascular Disease
DX: I47.10 Supraventricular tachycardia, unspecified (principal); I47.20 Ventricular tachycardia, unspecified; R93.1 Abnormal findings on diagnostic imaging of heart and coronary circulation
CPT/HCPCS: 78452; 93017; 93306; A9502

== ENCOUNTER 2024-11-16 14:05 | Outpatient (CLI) | payer OTHER, SELFPAY ==
--- OUTSIDE RECORDS SUMMARY | 2024-11-16 14:11 | XMS_ITS | Clinical Summary ---
Author Organization [facility] Address [address], [address] [address] Phone Care Team Providers Care Debit Agent Name Role Phone Provider, None Primary Care [...] Comments Blood Pressure 162/92 04/08/2020 3:20 PM NURSING DEPARTMENT CHAIRPERSON Pulse 65 04/08/2020 1:42 PM NURSING DEPARTMENT CHAIRPERSON Temperature 37.1 C (98.7 F) 04/08/2020 1:42 PM NURSING DEPARTMENT CHAIRPERSON Respiratory Rate 18 04/08/2020 1:42 PM NURSING DEPARTMENT CHAIRPERSON Oxygen Saturation 99% 04/08/2020 1:42 PM NURSING DEPARTMENT CHAIRPERSON Inhaled Oxygen Concentration - - Weight 68 kg (150 lb) 04/08/2020 1:42 PM NURSING DEPARTMENT CHAIRPERSON Height 167.6 cm (5' 6) 04/08/2020 1:42 PM NURSING DEPARTMENT CHAIRPERSON Body Mass Index 24.21 04/08/2020 1:42 PM NURSING DEPARTMENT CHAIRPERSON Plan of Treatment Health Maintenance Due Date Last Done Comments Hepatitis C Virus (HCV) Screening 1970 TdaP Immunization 1970 Hepatitis B Immunization (1 of 3 - 19+ 3-dose series) 1988 Pap Smear 1990 Cervical Cancer Screening (CCS) 06/26/1999 HPV/Cotest 06/26/1999 Cologuard 2014 Colonoscopy 2014 Colorectal Cancer Screening 2014 Immunochemical Fecal Occult Blood 2014 Pneumococcal Immunization (5 0+ years) (1 of 1 - PCV) 06/26/2019 Zoster Immunization (1 of 2) 06/26/2019 SARS-COV-2 Immunization (1 - season) 2023 Influenza Immunization (#1) 2024 Respiratory Syncytial Virus (RSV) Immunization (Adult) (1 - 1-dose 75+ series) 2044 Human Papillomavirus (HPV) Immunization Aged Out No longer eligible b ased on patient's age to complete this topic Meningococcal Immunization (ACWY) Aged Out No longer eligible based on patient's age to complete this topic Rotavirus Immunization Aged Out No lo nger eligible based on patient's age to complete this topic Insurance [place] AN[place] [id number] Care Teams Debit Agent Relationship Specialty Start Date End Date Provider, None [place] PCP - General 04/08/20
[2024-11-16 18:33] LABS: Alanine Aminotransferase 13 U/L (6-35); Albumin Level 4.6 g/dL (3.5-5.1); Alkaline Phosphatase 121 U/L (38-126); Anion Gap 9 mmol/L (4-12); Aspartate Amino Transferase 42 U/L (14-36); Bilirubin,Total 0.7 mg/dL (0.2-1.3); Blood Urea Nitrogen 13 mg/dL (7-17); Calcium 9.9 mg/dL (8.4-10.2); Carbon Dioxide 28 mmol/L (22-30); Chloride 104 mmol/L (98-107); Cholesterol 306 mg/dL (0-200); Estimated Glomerular Filt Rate > 60; Glucose 98 mg/dL (65-110); HDL Direct 56 mg/dL; Potassium 4.3 mmol/L (3.4-5.0); Sodium 141 mmol/L (137-145); Total Protein 9.1 g/dL (6.3-8.2); Triglycerides 145 mg/dL (<150)
== END 2024-11-16 14:06 | disposition home or self-care (01) ==
LOC: ANHBWCLAB 14:07
PROVIDERS: PCP Nurse Practitioner Adult Health; Visit Provider Internal Medicine Cardiovascular Disease
DX: E78.5 Hyperlipidemia, unspecified (principal)
CPT/HCPCS: 36415; 80053; 80061

== ENCOUNTER 2025-02-16 13:53 | Outpatient (CLI) | payer OTHER, SELFPAY ==
--- OUTSIDE RECORDS SUMMARY | 2025-02-16 14:53 | XMS_ITS | Clinical Summary ---
Author Organization [facility] Address [address], [address] [address] Phone Care Team Providers Care Cargo Mate Name Role Phone Provider, None Primary Care [...] Comments Blood Pressure 162/92 04/08/2020 3:20 PM MEDIA SERVICES COORDINATOR Pulse 65 04/08/2020 1:42 PM MEDIA SERVICES COORDINATOR Temperature 37.1 C (98.7 F) 04/08/2020 1:42 PM MEDIA SERVICES COORDINATOR Respiratory Rate 18 04/08/2020 1:42 PM MEDIA SERVICES COORDINATOR Oxygen Saturation 99% 04/08/2020 1:42 PM MEDIA SERVICES COORDINATOR Inhaled Oxygen Concentration - - Weight 68 kg (150 lb) 04/08/2020 1:42 PM MEDIA SERVICES COORDINATOR Height 167.6 cm (5' 6) 04/08/2020 1:42 PM MEDIA SERVICES COORDINATOR Body Mass Index 24.21 04/08/2020 1:42 PM MEDIA SERVICES COORDINATOR Plan of Treatment Health Maintenance Due Date [...] (1 of 2) 06/26/2019 Influenza Immunization (#1) 2024 SARS-COV-2 Immunization (1 - 2023- season) 2024 Respiratory Syncytial Virus (RSV) Immunization (Adult) [...] Insurance MEDICAID [place] Care Teams Cargo Mate Relationship Specialty Start Date End Date Provider, None [place] PCP - General 04/08/20
[2025-02-16 18:58] LABS: Alanine Aminotransferase 16 U/L (6-35); Albumin Level 4.5 g/dL (3.5-5.1); Alkaline Phosphatase 106 U/L (38-126); Anion Gap 9 mmol/L (4-12); Aspartate Amino Transferase 50 U/L (14-36); Bilirubin,Total 0.5 mg/dL (0.2-1.3); Blood Urea Nitrogen 15 mg/dL (7-17); Calcium 9.5 mg/dL (8.4-10.2); Carbon Dioxide 29 mmol/L (22-30); Chloride 102 mmol/L (98-107); Cholesterol 178 mg/dL (0-200); Estimated Glomerular Filt Rate > 60; Glucose 98 mg/dL (65-110); HDL Direct 67 mg/dL; Potassium 4.7 mmol/L (3.4-5.0); Sodium 140 mmol/L (137-145); Total Protein 8.5 g/dL (6.3-8.2); Triglycerides 62 mg/dL (<150)
== END 2025-02-16 13:54 | disposition home or self-care (01) ==
PROVIDERS: PCP Nurse Practitioner Adult Health; Visit Provider Nurse Practitioner Adult Health
DX: E78.5 Hyperlipidemia, unspecified (principal); I10 Essential (primary) hypertension
CPT/HCPCS: 36415; 80053; 80061